=== PATIENT | male | born 1955 | race Caucasian/White ===

== ENCOUNTER → 2019-09-21 10:37 | Outpatient (CLI) | payer BC, SELFPAY ==
--- NOTE | ~2019-09-21 | MR_ITS ---
EXAMINATION: MR lumbar spine wo con DATE: 09/21/2019 11:37 INDICATION: Low back pain. Lumbar spinal stenosis. TECHNIQUE: Magnetic resonance imaging (MRI) of the lumbar spine was performed without intravenous con trast. Sequences included sagittal T2-weighted FSE, sagittal T2-weighted FS FSE, sagittal T1-weighted FSE, and axial T2-weighted FSE. COMPARISON: Lumbar spine MRI 07/04/2013 FINDINGS: There is 4 mm anterolisthesis of L4 on L5. There are Schmorl's nodes at most levels. There is mildly decreased disc height at L3-L4 and L4-L5 and moderately decreased disc height at L5-S1. The distal spinal cord signal intensity is normal. The conus medullaris is at T12-L1. The following disc levels are specifically discussed: L1-L2: The disc is bulging. There is moderate right and mild left facet joint osteoarthritis. There i s mild bilateral neural foraminal stenosis. There is mild central canal stenosis. L2-L3: The disc does not extend beyond the endplate margin. There is severe right and moderate left f acet joint osteoarthritis. There is no neural foraminal stenosis. There is no central canal stenosis. L3-L4: The disc is bulging. There is severe bilateral facet joint osteoarthritis. There is mild bilat eral neural foraminal stenosis. There is mild central canal stenosis. L4-L5: The disc is bulging and has an annular fissure. There is severe bilateral facet joint osteoart hritis. There is hypertrophy of the ligamentum flavum. There is mild right and moderate left neural f oraminal stenosis. There is severe central canal stenosis. L5-S1: The disc is mildly bulging. There is mild bilateral facet joint osteoarthritis. There is mild bilateral neural foraminal stenosis. There is mild central canal stenosis. IMPRESSION: 1. Persistent severe central canal stenosis at L4-L5. Stable moderate spondylosis at other levels. Reviewed, dictated and finalized at location A. IMPRESSION: 1. Persistent severe central canal stenosis at L4-L5. Stable moderate spondylos is at other levels.
== END ==
PROVIDERS: PCP Emergency Medicine; Visit Provider Emergency Medicine
DX: M48.061 Spinal stenosis, lumbar region without neurogenic claudication (principal); M51.26 Other intervertebral disc displacement, lumbar region; M47.816 Spondylosis without myelopathy or radiculopathy, lumbar region
CPT/HCPCS: 72148

== ENCOUNTER → 2020-06-05 10:36 | Outpatient (CLI) | payer BC, SELFPAY ==
--- NOTE | ~2020-06-05 | CT_ITS ---
EXAMINATION: CT abdomen pelvis w con DATE: 06/05/2020 11:06 INDICATION: Lower abdominal pain. TECHNIQUE: Computed tomography (CT) of the abdomen and pelvis was performed with 100 mL Omnipaque-350 intravenous contrast. Automated exposure control and iterative reconstruction technique were employe d. The dose-length product was 705.08 mGy-cm. COMPARISON: 04/12/2018 FINDINGS: Minimal discoid atelectasis in the bilateral lower lobes. Heart size is normal. No pericardial or ple ural effusion. Unchanged 1 cm cyst at the periphery of segment IVb of the liver. Gallbladder, spleen, pancreas, bilateral adrenal glands and right kidney are normal. 3.7 cm left renal cyst. The appendix is not visualized consistent with reported prior appendectomy. There are few scattered colonic diver ticula without adjacent inflammatory change to suggest diverticulitis. Decompressed bladder is normal . No free intraperitoneal gas or fluid. No pathologically enlarged abdominal or pelvic lymphadenopath y. Moderate thoracic and lumbar spondylosis. Chronic mild anterior wedging of a few lower thoracic ve rtebral bodies. IMPRESSION: 1. No acute intra-abdominal/pelvic process. Reviewed, dictated and finalized at location B.
[2020-06-05 10:54] LABS: Estimated Glomerular Filt Rate > 60
== END ==
PROVIDERS: PCP Emergency Medicine; Visit Provider Emergency Medicine
DX: R10.9 Unspecified abdominal pain (principal)
CPT/HCPCS: 74177; Q9967

== ENCOUNTER 2022-04-29 00:36 | Day surgery (SDC) | payer BC, SELFPAY ==
[2022-04-14 14:01] VITALS: BMI 27.3
--- NOTE | 2022-04-28 11:44 | P.PNAN_ITS ---
Anes - Initial Pre Proc Eval Procedure: Operation Date: 04/29/22 08:30 Proposed Procedures p Screening Colonoscopy - Dashawn Marcial MD Date/Time: 04/28/22 11:44 Surgeon: Dashawn Marcial MD Pre Op Diagnosis: neoplasm screening Patient Data Age: 66 Gender: M Height: 1.75 m Weight: 84 kg Allergies Allergy/AdvReac Type Severity Reaction Status Date / Time No Known Allergies Allergy Verified 04/29/22 07:25 Home Medications Medication Instructions Recorded Confirmed Type aspirin 81 mg tablet,delayed 81 mg PO DAILY 09/14/19 04/29/22 History release magnesium 250 mg tablet 250 mg PO DAILY 09/14/19 04/29/22 History lisinopril 20 mg tablet 20 mg PO DAILY #90 tabs 12/15/21 04/29/22 Rx temazepam 15 mg capsule 15 mg PO QHS PRN sleep #20 caps 03/31/22 04/29/22 Rx fenofibrate nanocrystallized 48 mg 48 mg PO DAILY 04/14/22 04/29/22 History tablet omeprazole 40 mg capsule,delayed 40 mg PO BID 04/14/22 04/29/22 History release simvastatin 20 mg tablet 20 mg PO DAILY 04/14/22 04/29/22 History nirmatrelvir 300 mg (150 mg See Rx Instructions PO .COMPLEX 04/17/22 04/29/22 Rx x2)-ritonavir 100 mg tablet,dose #30 ea pack(EUA) (Paxlovid) Patient hx anesthesia problems: none Family hx anesthesia problems: none Results Review: All pre-operative results and documents have been reviewed as part of the pre- operative evaluation. [facility] Past Medical History Medical History (Updated 04/28/22 @ 11:45 by Mark Anthony Bautista DO) BPH (benign prostatic hyperplasia) GERD (gastroesophageal reflux disease) HTN (hypertension) Hyperlipidemia Family History Family History Father Patient's father is in good health Patient's father is , Onset Age: 92 Mother Family history of heart disease in male family member before age 55 Patient's mother is , Onset Age: 86 Sibling Patient's brother is Family history of malignant neoplasm Social History Social History Smoking status: Never smoker Second hand tobacco smoke exposure: No Alcohol intake: current Drinks per week: 4 Alcohol use details: beer Substance use: never Substance use type: does not use Living arrangements: alone Gender identity (if verbalized by the patient): Male Spiritual care concerns: No Anes - Eval Final PreProcedure Day of Procedure 04/28/22 11:44 Patient weight: overweight Heart: regular rate and rhythm Lungs: clear to auscultation Airway: Mallampati scale class II Neurological: alert and oriented Last oral intake: >/= 8 hours ASA classification: II Emergent: no Anesthetic plan: proceed Anesthesia type and monitoring: general GIVS and standard monitoring Results Review: All pre-operative results and documents have been reviewed as part of the pre- operative evaluation. Informed Consent: The patient's anesthetic plan and its attendant risks and benefits were discussed with the patient/family/POA. Questions were solicited and answers provided to the satisfaction of the patient/family/POA.
--- NOTE | 2022-04-28 16:37 | PM.HPGS ---
History of Present Illness History of Present Illness Consent: Risks, benefits, and alternatives have been discussed and questions answered. Patient agrees to proceed with procedure. Chief complaint: neoplasm screening Narrative: Roddy Guardado is a 66 year old male Referred for colon cancer screening. His last colonoscopy was 5 years ago and was unremarkable He does have a history of polyps. Review of Systems Review of Systems: All systems reviewed & are unremarkable except as noted in HPI and below PMFSH Past Medical History Medical History BPH (benign prostatic hyperplasia) GERD (gastroesophageal reflux disease) HTN (hypertension) Hyperlipidemia Family History Family History Father Patient's father is in good health Patient's father is , Onset Age: 92 Mother Family history of heart disease in male family member before age 55 Patient's mother is , Onset Age: 86 Sibling Patient's brother is Family history of malignant neoplasm Social History Social History Smoking status: Never smoker Second hand tobacco smoke exposure: No Alcohol intake: current Drinks per week: 4 Alcohol use details: beer Substance use: never Substance use type: does not use Living arrangements: alone Gender identity (if verbalized by the patient): Male Spiritual care concerns: No Meds Home Medications and Allergies Home Medications Medication Instructions Recorded Confirmed Type aspirin 81 mg tablet,delayed 81 mg PO DAILY 09/14/19 04/29/22 History release magnesium 250 mg tablet 250 mg PO DAILY 09/14/19 04/29/22 History lisinopril 20 mg tablet 20 mg PO DAILY #90 tabs 12/15/21 04/29/22 Rx temazepam 15 mg capsule 15 mg PO QHS PRN sleep #20 caps 03/31/22 04/29/22 Rx fenofibrate nanocrystallized 48 mg 48 mg PO DAILY 04/14/22 04/29/22 History tablet omeprazole 40 mg capsule,delayed 40 mg PO BID 04/14/22 04/29/22 History release simvastatin 20 mg tablet 20 mg PO DAILY 04/14/22 04/29/22 History nirmatrelvir 300 mg (150 mg See Rx Instructions PO .COMPLEX 04/17/22 04/29/22 Rx x2)-ritonavir 100 mg tablet,dose #30 ea pack(EUA) (Paxlovid) Allergies Allergy/AdvReac Type Severity Reaction Status Date / Time No Known Allergies Allergy Verified 04/29/22 07:25 Exam Resp: Auscultation: clear to auscultation bilaterally Cardio: Rate: regular rate Rhythm: regular rhythm GI: GI Palp: Yes Soft to palpation and No Tenderness to palpation present (GI) Assessment and Plan Assessment and plan (1) Colon cancer screening: Code(s): Z12.11 - Encounter for screening for malignant neoplasm of colon Status: Acute Assessment and Plan: Colonoscopy with possible biopsy or polypectomy or cautery or injection of substances.
[2022-04-29 07:27] VITALS: BP 129/86; PULSE 64; RESP 18; TEMP 36.4; O2SAT 98; BMI 27.9
[2022-04-29] MEDS: LACTATED RINGERS 1,000 ML 150 ML IV CONT (07:37)
[2022-04-29 08:44] VITALS: BP 110/69; PULSE 62; RESP 24; O2SAT 97
[2022-04-29 08:54] VITALS: BP 115/80; PULSE 63; RESP 15; O2SAT 98
[2022-04-29 09:04] VITALS: BP 122/86; PULSE 64; RESP 17; O2SAT 98
== END 2022-04-29 09:12 | disposition home or self-care (01) ==
PROVIDERS: PCP Emergency Medicine; Visit Provider Internal Medicine Gastroenterology
PROC: 0DJD8ZZ Inspection of Lower Intestinal Tract, Via Natural or Artificial Opening Endoscopic (ICD-10-PCS; CPT 45378; principal; 2022-04-29 08:30)
DX: Z12.11 Encounter for screening for malignant neoplasm of colon (principal); K57.30 Diverticulosis of large intestine without perforation or abscess without bleeding; Z86.010 Personal history of colon polyps; Z79.82 Long term (current) use of aspirin; I10 Essential (primary) hypertension; E78.5 Hyperlipidemia, unspecified; K21.9 Gastro-esophageal reflux disease without esophagitis; N40.0 Benign prostatic hyperplasia without lower urinary tract symptoms
CPT/HCPCS: 45378; J2704; J7120

== ENCOUNTER → 2022-08-04 08:15 | Outpatient (CLI) | payer MEDICARE, SELFPAY ==
--- NOTE | ~2022-08-04 | CT_ITS ---
CT of the Abdomen and Pelvis: Indication: Abdominal pain Technique: 2.5 mm axial scans were obtained through the abdomen and pelvis following intravenous adm inistration of 100 cc of Omnipaque 350. Dose reduction technique was used on this scan by utilizing a utomated exposure control and iterative reconstruction technique. The dose-length product (DLP) was 7 99.16 mGy-cm. COMPARISON: 06/05/2020 Findings: Scans through the lung bases are unremarkable. The liver, spleen, pancreas, gallbladder, adrenals and kidneys are within normal limits. No evidence of aortic aneurysm. No lymphadenopathy. No bowel obstruction or bowel wall thickening. There is no evidence to suggest acute appendicitis. Images through the pelvis were performed. Urinary bladder unremarkable. Prostate gland and seminal ve sicles are unremarkable. No ascites. Mild compression deformities of T8 and T9 are similar to prior e xam. Impression: No acute abnormality. Stable mild compression deformities of T8 and T9. Reviewed, dictated and finalized at location . Impression: No acute abnormality. Stable mild compression deformities of T8 and T9.
[2022-08-04 08:35] LABS: Estimated Glomerular Filt Rate > 60
== END ==
PROVIDERS: PCP Nurse Practitioner Family; Visit Provider Nurse Practitioner Family
DX: R10.9 Unspecified abdominal pain (principal); M43.8X4 Other specified deforming dorsopathies, thoracic region
CPT/HCPCS: 74177; Q9967

== ENCOUNTER 2023-03-24 19:21 | Emergency (ER) | payer MEDICARE, SELFPAY ==
[2023-03-24 19:31] VITALS: BP 142/77; PULSE 93; RESP 16; TEMP 38; O2SAT 100
--- NOTE | 2023-03-24 19:32 | ED.URI ---
HPI - URI/Sore Throat General Chief Complaint: Upper Respiratory Infection Stated Complaint: Fever;Cough;Chills Time Seen by Provider: 03/24/23 19:32 Source: patient, RN notes reviewed and old records reviewed Mode of arrival: ambulatory Limitations: no limitations History of Present Illness HPI Narrative: 67-year-old male presents to the [facility] with complaints of fever, cough, chills since Tuesday [facility] day(s) (2) Related Data Home Medications Medication Instructions Recorded Confirmed aspirin 81 mg tablet,delayed 81 mg PO DAILY 09/14/19 03/24/23 release magnesium 250 mg tablet 250 mg PO DAILY 09/14/19 03/24/23 Allergies Allergy/AdvReac Type Severity Reaction Status Date / Time No Known Allergies Allergy Verified 03/24/23 19:27 Review of Systems Review of Systems: All systems reviewed & are unremarkable except as noted in HPI and below Constitutional: Constitutional: Reports as per HPI, Reports body ache(s), Reports chills, Reports fatigue and Reports fever(s) Eyes: Eyes: Reports no additional eye complaints ENT: Reports system reviewed and no additional complaints, except as documented Cardiovascular: Cardiovascular: Reports no additional cardiovascular complaints, Denies chest pain and Denies dyspnea Respiratory: Respiratory: Reports as per HPI, Denies chest congestion, Reports cough and Denies dyspnea Gastrointestinal: Gastrointestinal: Reports no additional gastrointestinal complaints, Denies abdominal pain, Denies nausea and Denies vomiting Musculoskeletal: Musculoskeletal: Reports no additional musculoskeletal complaints Integumentary/Breasts: Skin/Breast: Reports system reviewed and no additional complaints, except as docu Neurologic: Reports system reviewed and no additional complaints, except as documented Psychiatric: Psychiatric: Reports no additional psychiatric complaints Allergic/Immunologic: Allergic/Immunologic: Reports no additional allergic/immunologic complaints [facility] Past Medical History Medical History BPH (benign prostatic hyperplasia) Dark stools GERD (gastroesophageal reflux disease) HTN (hypertension) Hyperlipidemia Family History Family History Father Patient's father is in good health Patient's father is , Onset Age: 92 Mother Family history of heart disease in male family member before age 55 Patient's mother is , Onset Age: 86 Sibling Patient's brother is Family history of malignant neoplasm Social History Social History Smoking status: Never smoker Second hand tobacco smoke exposure: No Alcohol intake: current Drinks per week: 4 Alcohol use details: beer Substance use: never Substance use type: does not use Living arrangements: alone Gender identity (if verbalized by the patient): Male Spiritual care concerns: No Comments At the time of my signature, I reviewed and agree with the nursing past medical, surgical, social, and family history. There is no relevant family history pertinent to the patient complaint. Exam Const: General: cooperative, healthy appearing, comfortable, no acute distress, well developed, alert and well nourished Nutritional Appearance: well nourished Orientation/consciousness: patient oriented x3 Limitations: no limitations HENMT: Head: normal to inspection Ears: hearing grossly normal bilaterally and external ears normal Face/Nose/Sinus: Normal external nose present, Normal nares present, Normal nasal mucous membranes and turbinates present, normal facial exam and face symmetric Face and sinus: normal facial exam and face symmetric Mouth: Yes Normal oral and palatal mucosa present, Yes lip normal and Yes moist mucous membranes
== END 2023-03-24 19:48 | disposition home or self-care (01) ==
PROVIDERS: Emergency Provider Nurse Practitioner; PCP Emergency Medicine
DX: J10.1 Influenza due to other identified influenza virus with other respiratory manifestations (principal); I10 Essential (primary) hypertension; E78.5 Hyperlipidemia, unspecified; Z79.82 Long term (current) use of aspirin; Z20.822 Contact with and (suspected) exposure to COVID-19
CPT/HCPCS: 87426; 87804; 99213; G0463

== ENCOUNTER 2023-03-27 10:05 | Emergency (ER) | payer MEDICARE, SELFPAY ==
--- NOTE | ~2023-03-27 | XR_ITS ---
EXAMINATION: XR chest 1V portable 03/27/2023 10:35 INDICATION: Shortness of breath. Flu PROCEDURE: AP portable chest COMPARISON: No prior studies for comparison. FINDINGS: The lungs are clear. The cardiomediastinal silhouette is within normal limits. There are no pleural effusions. There is no pneumothorax suspected. IMPRESSION: 1: NO ACUTE CARDIOPULMONARY DISEASE. Reviewed, dictated and finalized at location A. [employer]
[2023-03-27 10:11] VITALS: BP 150/78; PULSE 64; RESP 16; TEMP 36.5; O2SAT 100
--- NOTE | 2023-03-27 10:23 | ECG_ITS ---
Measurements Intervals [place] Rate: 63 P: 61 IA: 153 QRS: 32 QRSD: 97 T: 61 QT: 363 QTc: 372 Interpretive Statements SINUS RHYTHM EARLY PRECORDIAL R/S TRANSITION BORDERLINE ECG NO PREVIOUS ECG AVAILABLE FOR COMPARISON Electronically Signed On 03-27-2023 11:31:28 [employer] by Hima Muller D.O.
[2023-03-27 10:39] LABS: Basophils Percent Auto 0.4 % (0.2-1.2); Eosinophils Absolute Auto 0.1 K/mm3 (0-0.3); Eosinophils Percent Auto 1.1 % (0-4.4); Hematocrit 38.8 % (42.0-52.0); Hemoglobin 12.9 g/dL (14.0-18.0); Immature Granulocyte Absolute 0.01 K/mm3 (0.00-0.031); Immature Granulocyte Percent A 0.2 % (0-0.5); Lymphocytes Absolute Auto 1.32 K/mm3 (0.9-3.2); Lymphocytes Percent Auto 28.6 % (18.3-44.2); Mean Corpuscular HGB Conc 33.2 g/dl (32-36); Mean Corpuscular Hemoglobin 31.5 pg (26-34); Mean Corpuscular Volume 94.9 fl (80-100); Monocytes Absolute Auto 0.5 K/mm3 (0.1-0.6); Monocytes Percent Auto 10.6 % (2.6-8.5); Neutrophils Absolute Auto 2.7 K/mm3 (1.3-6.7); Neutrophils Percent Auto 59.1 % (45.5-73.1); Platelet Count Result 199 k/mm3 (150-375); Red Blood Count 4.09 M/mm3 (4.6-6.20); White Blood Count 4.6 K/mm3 (4.5-10.0)
[2023-03-27 10:48] LABS: Alanine Aminotransferase 28 U/L (6-50); Albumin Level 3.8 g/dL (3.5-5.1); Alkaline Phosphatase 53 U/L (38-126); Anion Gap 5 mmol/L (8-16); Aspartate Amino Transferase 33 U/L (17-59); Bilirubin,Total 0.4 mg/dL (0.2-1.3); Blood Urea Nitrogen 12 mg/dL (9-20); Calcium 9.1 mg/dL (8.4-10.2); Carbon Dioxide 30 mmol/L (22-30); Chloride 107 mmol/L (98-107); Estimated CRCL calculation 72 ml/min; Estimated Glomerular Filt Rate > 60; Glucose 112 mg/dL (65-110); Potassium 3.6 mmol/L (3.4-5.0); Sodium 142 mmol/L (137-145)
--- NOTE | 2023-03-27 11:06 | ED.GENADULT ---
HPI - General Adult General Chief complaint: Shortness of Breath/Dyspnea Stated complaint: GARGLING IN CHEST Time Seen by Provider: 03/27/23 10:30 History of Present Illness HPI narrative: 67-year-old male present to the emergency department for evaluation of some gurgling respirations. Patient states on Tuesday he began having flu-like symptoms and patient did test positive for influenza a on . Patient reports his primary care physician had ordered him outpatient imaging but he had not had this done. Patient states when he woke up this morning he had onset of some gurgling in his chest that he states has since resolved. Room upon arrival to the emergency department patient is alert oriented and saturating 100% with a pulse in the 60s. Patient is in no distress. Related Data Home Medications Medication Instructions Recorded Confirmed aspirin 81 mg tablet,delayed 81 mg PO DAILY 09/14/19 03/24/23 release magnesium 250 mg tablet 250 mg PO DAILY 09/14/19 03/24/23 Allergies Allergy/AdvReac Type Severity Reaction Status Date / Time No Known Allergies Allergy Verified 03/24/23 19:27 Review of Systems Review of Systems: All systems reviewed & are unremarkable except as noted in HPI and below PMFSH Past Medical History Medical History BPH (benign prostatic hyperplasia) Dark stools GERD (gastroesophageal reflux disease) HTN (hypertension) Hyperlipidemia Family History Family History Father Patient's father is in good health Patient's father is , Onset Age: 92 Mother Family history of heart disease in male family member before age 55 Patient's mother is , Onset Age: 86 Sibling Patient's brother is Family history of malignant neoplasm Social History Social History Smoking status: Never smoker Second hand tobacco smoke exposure: No Alcohol intake: current Drinks per week: 4 Alcohol use details: beer Substance use: never Substance use type: does not use Living arrangements: alone Gender identity (if verbalized by the patient): Male Spiritual care concerns: No Exam Narrative: APPEARANCE: Well appearing, no pain, no distress, well-nourished. HEAD: normocephalic, atraumatic. EYES: PERRLA/EOMI, conjunctivae clear. NOSE: Normal no drainage EARS:TMS clear with good light reflex. THROAT: Pharynx clear, no exudate. NECK: Supple. No adenopathy, no masses. RESPIRATORY: Lungs are clear to auscultation with no rhonchi rales or wheezing CARDIOVASCULAR: Regular rate and rhythm without murmurs rubs or gallops. ABDOMINAL: Soft, nontender, nondistended, normal bowel sounds MUSCULOSKELETAL: Moves all extremities. Strength/ROM intact, No edema, No calf tenderness. NEURO: Alert. Cranial nerves II through XII intact. Good gait. Good coordination SKIN: Warm, dry. Normal Color Course Course Emergency Course: 67-year-old male presenting ED for evaluation for some gurgling in his chest, patient states symptoms have resolved. Patient is afebrile with no leukocytosis and a stable hemoglobin, CMP shows no acute abnormalities and patient's x-ray shows no acute cardiopulmonary abnormality. Patient was positive for influenza a . Vital Signs Vital signs: Vital Signs Temperature 97.7 F 03/27/23 10:11 Pulse Rate 64 03/27/23 10:11 Respiratory Rate 16 03/27/23 10:11 Blood Pressure 150/78 H 03/27/23 10:11 Pulse Oximetry 100 03/27/23 10:11 Temperature 97.7 F 03/27/23 10:11 Pulse Rate 64 03/27/23 11:25 Respiratory Rate 16 03/27/23 11:25 Blood Pressure 140/80 03/27/23 11:25 Pulse Oximetry 100 03/27/23 11:25 Oxygen Delivery Room Air 03/27/23 11:24 Medical Decision Making Vital Signs Vital Signs: Vital Signs Temperature 97.7
[2023-03-27 11:18] LABS: Influenza A QL RT-PCR Positive (Negative); Influenza B QL RT-PCR Negative (Negative); RSV RNA, RT-PCR Negative (Negative); SARS-CoV-2 RNA PCR Negative (Negative)
[2023-03-27 11:24] VITALS: O2SAT 100
[2023-03-27 11:25] VITALS: BP 140/80; PULSE 64; RESP 16; O2SAT 100
== END 2023-03-27 11:26 | disposition home or self-care (01) ==
PROVIDERS: Emergency Provider Emergency Medicine; PCP Emergency Medicine
DX: J10.1 Influenza due to other identified influenza virus with other respiratory manifestations (principal); R05.9 Cough, unspecified; Z20.822 Contact with and (suspected) exposure to COVID-19; I10 Essential (primary) hypertension; E78.5 Hyperlipidemia, unspecified; N40.0 Benign prostatic hyperplasia without lower urinary tract symptoms; K21.9 Gastro-esophageal reflux disease without esophagitis
CPT/HCPCS: 36415; 71045; 80053; 85025; 87637; 93005; 99284

== ENCOUNTER 2023-10-19 18:53 | Emergency (ER) | payer MEDICARE, SELFPAY ==
--- NOTE | ~2023-10-19 | CT_ITS ---
EXAMINATION: CTA chest abdomen pelvis DATE: 10/20/2023 01:04 INDICATION: Mid back pain. Abdominal pain. TECHNIQUE: Computed tomographic angiography (CTA) of the chest, abdomen, and pelvis was performed wit h 100 mL Omnipaque-350 intravenous contrast. Automated exposure control and iterative reconstruction technique were employed. The dose-length product was 776.89 mGy-cm. Maximum intensity projection 3D-r econstructions of the aorta and other arteries were constructed by the technologist on a separate wor kstation. COMPARISON: CT abdomen and pelvis 08/04/22 FINDINGS: CHEST CTA: The lungs demonstrate mild atelectasis. Calcified left lung nodules and calcified left hilar lymph no juan are consistent with old granulomatous disease. No pleural effusion. There is mild right hilar lym phadenopathy, likely reactive. The heart size is normal. There are coronary artery calcifications. No pericardial effusion. There is no pulmonary embolus. There is mild aortic atherosclerosis. There is mild chronic anterior wedging of multiple vertebral bodies. There is moderate thoracic spondylosis. ABDOMEN AND PELVIS CTA: The liver and gallbladder are normal. Calcifications in the spleen are consistent with old granulomat ous disease. The pancreas and adrenal glands and right kidney are normal. There is a 4.4 cm cyst in l eft kidney. There is diverticulosis of the colon without evidence of diverticulitis. The appendix is not visualized. There are no dilated loops of bowel. There is no significant stenosis of celiac axis, superior mesenteric artery, the renal arteries, or inferior mesenteric artery. Aortic atherosclerosi s is noted. There are no pathologically enlarged lymph nodes. There is no free intraperitoneal fluid. There is moderate lumbar spondylosis. IMPRESSION: 1. Mild aortic atherosclerosis. No aneurysm or dissection. Reviewed, dictated and finalized at location A.
[2023-10-19 19:16] VITALS: BP 130/79; PULSE 67; RESP 14; TEMP 37.1; O2SAT 98
--- NOTE | 2023-10-19 23:24 | ECG_ITS ---
Test Date: 2023-10-19 23:46:48 Measurements Intervals [place] Rate: 49 P: 60 NE: 167 QRS: 32 QRSD: 97 T: 52 QT: 419 QTc: 381 Interpretive Statements SINUS BRADYCARDIA No previous ECG available for comparison Electronically Signed On 10-20-2023 14:42:44 CDT by Tony Altamirano M.D.
--- NOTE | 2023-10-19 23:25 | ED.ABDPAIN ---
HPI - Abdominal Pain General Chief Complaint: Abdominal Pain <SOLEDAD Brandt Last Filed: 10/20/23 03:12> Stated Complaint: Left sided Abdominal pain, LUQ, LLQ <SOLEDAD Brandt Last Filed: 10/20/23 03:12> Time Seen by Provider: 10/19/23 23:11 <SOLEDAD Brandt Last Filed: 10/20/23 03:12> History of Present Illness HPI narrative: 68-year-old male with history of hypertension, hyperlipidemia and GERD presents to the emergency department for intermittent abdominal pain for several weeks. Patient states that the onset of symptoms is pain would occur at night when be in the lower quadrants of his abdomen. States now the pain is intermittent his lower abdomen and in his left upper quadrant. He is also reporting some exertional shortness of breath. States he works as a [employer] noticed today a it seemed more out of breath than normal. States he has also been experiencing some intermittent mid back pain he between his scapula. He cannot identify any aggravating or alleviating factors for his pain. He denies fever, nausea or vomiting, dysuria or hematuria, diarrhea. Reports a history of hernia repair and appendectomy. Last bowel movement was today and normal. He is also reporting a residual cough from when he had influenza A in March of 2023. <SOLEDAD rBandt Last Filed: 10/20/23 03:12> Related Data Home Medications: Home Medications Medication Instructions Recorded Confirmed aspirin 81 mg tablet,delayed 81 mg PO DAILY 09/14/19 04/01/23 release magnesium 250 mg tablet 250 mg PO DAILY 09/14/19 04/01/23 <SOLEDAD Brandt Last Filed: 10/20/23 03:12> Allergies/Adverse Reactions: Allergies Allergy/AdvReac Type Severity Reaction Status Date / Time No Known Allergies Allergy Verified 10/19/23 19:21 <SOLEDAD Brandt Last Filed: 10/20/23 03:12> Review of Systems Review of Systems: All systems reviewed & are unremarkable except as noted in HPI and below <SOLEDAD Brandt Last Filed: 10/20/23 03:12> PMFSH Past Medical History Medical History: Medical History BPH (benign prostatic hyperplasia) Dark stools GERD (gastroesophageal reflux disease) HTN (hypertension) Hyperlipidemia <Millicent Avendaño PA-C - Last Filed: 10/20/23 03:12> Family History Family History: Family History Father Patient's father is in good health Patient's father is , Onset Age: 92 Mother Family history of heart disease in male family member before age 55 Patient's mother is , Onset Age: 86 Sibling Patient's brother is Family history of malignant neoplasm <Millicent Avendaño PA-C - Last Filed: 10/20/23 03:12> Social History Social History: Social History Smoking status: Never smoker Second hand tobacco smoke exposure: No Alcohol intake: current Drinks per week: 4 Alcohol use details: beer Substance use: never Substance use type: does not use Current Housing: Decline to Answer Concerned About Future Housing: Decline to Answer Difficulty Paying Gas/Electric Bills: Decline to Answer Difficulty Paying for Meds: Decline to Answer Currently Unemployed: Decline to Answer Education: Decline to Answer Difficulty w/ Childcare or Family Care: Decline to Answer Living arrangements: alone Gender identity (if verbalized by the patient): Male Spiritual care concerns: No <Millicent Avendaño PA-C - Last Filed: 10/20/23 03:12> Exam Narrative: GENERAL: Well-appearing, well-nourished, and in no acute distress. HEAD: Normocephalic, atraumatic. EYES: PERRLA and EOMI. ENT: Nares clear, no rhinorrhea or epistaxis. Mucous membranes moist. NECK: Supple. BACK: No midline thoracolumba
[2023-10-20 00:10] LABS: Add Urine Microscopic? NO; Appearance Urine Clear (Clear); Bilirubin Urine Negative (Negative); Blood Urine Negative (Negative); Color Urine Yellow (Yellow); Glucose Urine UA Negative (Negative); Ketones Urine Negative (Negative); Leukocyte Esterase Ur Negative LEU/UL (Negative); Nitrate Urine Negative (Negative); Protein Urine Negative (Negative); Specific Grav Ur 1.016 (1.001-1.035); Urobilinogen Urine 0.2 mg/dL (<2.0)
[2023-10-20 00:19] LABS: Basophils Percent Auto 0.5 % (0.2-1.2); Eosinophils Absolute Auto 0.2 K/mm3 (0-0.3); Eosinophils Percent Auto 2.7 % (0-4.4); Hematocrit 39.5 % (42.0-52.0); Hemoglobin 13.5 g/dL (14.0-18.0); Immature Granulocyte Absolute 0.01 K/mm3 (0.00-0.031); Immature Granulocyte Percent A 0.2 % (0-0.5); Lymphocytes Percent Auto 40.3 % (18.3-44.2); Mean Corpuscular HGB Conc 34.2 g/dl (32-36); Mean Corpuscular Hemoglobin 32.1 pg (26-34); Monocytes Absolute Auto 0.7 K/mm3 (0.1-0.6); Monocytes Percent Auto 10.6 % (2.6-8.5); Neutrophils Absolute Auto 2.8 K/mm3 (1.3-6.7); Neutrophils Percent Auto 45.7 % (45.5-73.1); Platelet Count Result 243 k/mm3 (150-375); Red Cell Distribution Width 12.8 % (11.5-14.5); White Blood Count 6.2 K/mm3 (4.5-10.0)
[2023-10-20 00:20] LABS: Alanine Aminotransferase 29 U/L (6-50); Albumin Level 4.5 g/dL (3.5-5.1); Alkaline Phosphatase 64 U/L (38-126); Anion Gap 9 mmol/L (4-12); Aspartate Amino Transferase 31 U/L (17-59); Bilirubin,Total 0.7 mg/dL (0.2-1.3); Blood Urea Nitrogen 16 mg/dL (9-20); Calcium 9.6 mg/dL (8.4-10.2); Carbon Dioxide 29 mmol/L (22-30); Chloride 100 mmol/L (98-107); Estimated CRCL calculation 64 ml/min; Estimated Glomerular Filt Rate > 60; Glucose 97 mg/dL (65-110); Lipase 146 U/L (23-300); Potassium 4.2 mmol/L (3.4-5.0); Sodium 138 mmol/L (137-145)
[2023-10-20 00:21] LABS: Prothrombin Time 13.5 Seconds (11.1-14.7)
[2023-10-20 00:22] LABS: Partial Thromboplastin Time 31.6 Seconds (22.3-36.8)
[2023-10-20 00:30] LABS: NT Pro B Type Natriuretic Pept 26 pg/mL (19.9-100)
[2023-10-20 00:32] LABS: Troponin I < 0.012 ng/mL (0.000-0.034)
[2023-10-20 00:46] LABS: Influenza A QL RT-PCR Negative (Negative); Influenza B QL RT-PCR Negative (Negative); RSV RNA, RT-PCR Negative (Negative); SARS-CoV-2 RNA PCR Negative (Negative)
[2023-10-20 03:47] VITALS: BP 126/83; PULSE 74; RESP 18; O2SAT 99
== END 2023-10-20 04:35 | disposition home or self-care (01) ==
PROVIDERS: Physician Assistant; Emergency Provider Emergency Medicine; PCP Emergency Medicine
DX: R10.84 Generalized abdominal pain (principal); M54.6 Pain in thoracic spine; R06.02 Shortness of breath; Z20.822 Contact with and (suspected) exposure to COVID-19; I10 Essential (primary) hypertension; E78.5 Hyperlipidemia, unspecified; N40.0 Benign prostatic hyperplasia without lower urinary tract symptoms; K21.9 Gastro-esophageal reflux disease without esophagitis; Z79.82 Long term (current) use of aspirin; Z79.899 Other long term (current) drug therapy; R00.1 Bradycardia, unspecified; I70.0 Atherosclerosis of aorta
CPT/HCPCS: 36415; 71275; 74174; 80053; 81003; 83690; 83880; 84484; 85025; 85610; 85730; 87637; 93005; 99284; Q9967

== ENCOUNTER 2024-04-04 08:56 | Outpatient (CLI) | payer MEDICARE, SELFPAY ==
--- OUTSIDE RECORDS SUMMARY | 2024-04-04 09:18 | XMS_ITS | Encounter Summary ---
Author Organization 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
--- OUTSIDE RECORDS SUMMARY | 2024-04-04 09:18 | XMS_ITS | Clinical Summary ---
Author Organization [facility] [address] Address [address] [place] [address] Care Team Providers Care Ham Facer Name Role Phone Gurjit Jones MD Primary Care Provide r Allergies No known active allergies Medications lisinopriL (PRINIVIL,ZESTRIL) 20 mg tablet Take 1 tablet (20 mg total) by mouth daily 08/06/19 20 Active fenofibrate nanocrystallized (TRICOR) 48 mg tablet Take 1 tablet (48 mg total) by mouth daily 10/16/19 20 Active omeprazole (PriLOSEC) 40 mg capsule Take 1 capsule (40 mg total) by mouth daily Active simvastatin (ZOCOR) 20 mg tablet Take 1 tablet (20 mg total) by mouth nightly 08/15/19 20 Active omega-3 fatty acids-fish oil 360-1,200 mg capsule Take 1 capsule by mouth Active ubidecarenone (coenzyme Q10) 60 mg capsule 60 mg Active pomegranate fruit extract 250 mg capsule Take by mouth Active pebalwol-lxl-BK-lyco pen-lutein (Centrum Silver Ultra Men's) 300-600-300 mcg tablet Take by mouth Active methylPREDNISolone (Medrol, Desean,) 4 mg Dosepack follow package directions 21 tablet 10/29/19 20 Active Additional Information Patient not taking.Reported on 08/22/2020 gabapentin (NEURONTIN) 300 mg capsule Take 1 capsule (300 mg total) by mouth nightly 90 capsule 1 10/29/19 20 Active tamsulosin (FLOMAX) 0.4 mg extended release capsule Take 1 capsule (0.4 mg total) by mouth daily 30 capsule 11 10/05/19 24 025 Active Active Problems Problem Noted Date Diagnosed Date Other chest pain 08/22/2020 Essential hypertension 08/22/2020 Mixed hyperlipidemia 08/22/2020 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 10/29/19 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 10/16/2019 Spondylolisthesis at L4-L5 level 10/16/2019 Family History Medical History Relation Name Comments Cancer Brother Breast cancer Father Cancer Mother Hypertension Mother Osteoporosis Mother Relation Name Status Comments Brother Renal Cancer Father Mother Social History Tobacco Use Types Packs/Day Years Used Date Smoking Tobacco: Never Personal Safety Answer Date Recorded Getting School Help Needed Not on file 04/24 Sex and Gender Information Value Date Recorded Sex Assigned at Not on file 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 Gender Identity Not on file Sexual Orientation Not on file Obstetrics History Last Filed Vital Signs Vital Sign Reading Time Taken Comments Blood Pressure 136/81 08/22/2020 8:12 AM CDT Pulse 52 08/22/2020 8:12 AM CDT Temperature 36.3 ??C (97.3 ??F) 10/29/2019 2:22 PM CD T Respiratory Rate - - Oxygen Saturation 98% 08/22/2020 8:12 AM CDT Inhaled Oxygen Concentration - - Weight 86.4 kg (190 lb 8 oz) 08/22/2020 8:12 AM CDT Height 175.3 cm (5' 9 ) 08/22/2020 8:12 AM CDT Body Mass Index 28.13 08/22/2020 8:12 AM CDT Plan of Treatment Health Maintenance Due Date Last Done Comments Colon Cancer Screening-Colonoscopy 1955 Depression Screening 1957 Fall Risk Assessment 1957 Hepatitis C Screening 1957 Prostate Cancer Screening-PSA 1957 Hepatitis B Screening 05/12/1975 Zoster Vaccine (1 of 2) 05/12/2007 Pneumococcal vaccine 65+ (1 of 1 - PCV) 2022 Well Visit 65+ 2022 Influenza Vaccine (#1) 2023 DTaP/Tdap/Td Vaccine (2 - Td or Tdap) 02/02/202607/2015 [place] P[place] Care Teams Ham Facer Relationship Specialty Start Date End Date Gurjit Jones MD [address] [place] [address] PCP - General 08/05/14
--- OUTSIDE RECORDS SUMMARY | 2024-04-04 09:18 | XMS_ITS | Encounter Summary ---
Author Organization [facility] Address [address] [place] [address] Phone Care Team Providers Care Assistant Professor Nurse Education Name Role Phone Gurjit Jones MD Primary Care Provide r Encounter Details Date Type Department Care Team (Latest Contact Info) Description 11/05/2011 Orders Only [facility] Scanning, Provider Social History Tobacco Use Types Packs/Day Years Used Date Smoking Tobacco: Never Assessed Sex and Gender Information Value Date Recorded Sex Assigned at Not on file 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
--- OUTSIDE RECORDS SUMMARY | 2024-04-04 09:19 | XMS_ITS | Clinical Summary ---
Author Organization [facility] [address] [facility] Address [address] [place] [address] Care Team Providers Care Director New Product Name Role Phone Gurjit Jones MD Primary Care Provider + [phone] Allergies No known active allergies Medications omeprazole (PriLOSEC) 40 mg Capsule, Delayed Release(E.C.) Take 40 mg by mouth daily. Active lisinopriL (PRINIVIL) 20 mg tablet Take 20 mg by mouth daily. Active fenofibrate nanocrystallized (TRICOR) 48 mg tablet Take 48 mg by mouth daily. Active simvastatin (ZOCOR) 20 mg tablet Take 20 mg by mouth daily with supper. Active LOW-DOSE ASPIRIN ORAL Take 81 mg by mouth. Active pomegranate xt/pomegranat seed (POMEGRANATE ORAL) Take by mouth. Active COQ10, UBIQUINOL, ORAL Take by mouth. Active Fish Oil-[place]-3 Fatty Acids 360-1,200 mg Capsule Take 1 Capsule by mouth. Active multivit-min/folic/v it K/lycop (MEN'S MULTIVITAMIN ORAL) Take by mouth. 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 10/16/2019 Family History Relation Name Status Comments Father Mother Social History Tobacco Use Types Packs/Day Years Used Date Smoking Tobacco: Never Alcohol Use Standard Drinks/Week Comments Yes 0 (1 standard drink = 0.6 oz pur e alcohol) Sex and Gender Information Value Date Recorded Sex Assigned at Not on file Legal Sex Male 4:14 PM CDT Gender Identity Not on file Sexual Orientation Not on file Last Filed Vital Signs Vital Sign Reading Time Taken Comments Blood Pressure - - Pulse - - Temperature 36.4 ??C (97.5 ??F) 10/16/2019 1:17 PM CD T Respiratory Rate - - Oxygen Saturation - - Inhaled Oxygen Concentration - - Weight - - Height - - Body Mass Index - - Plan of Treatment Health Maintenance Due Date Last Done Comments DTAP/TDAP/TD VACCINES (1 - Tdap) 1976 COLORECTAL SCREENING 2002 Colorectal Cancer Screening 2002 FIT-DNA Q 3 years 2002 FIT/FOBT Q 1 year 2002 Flex Sig/CT Colonography Q 5 years 2002 PNEUMOCOCCAL VACCINE 65+ YEARS (1 of 1 - PCV) 05/12/19 08 ZOSTER VACCINE (1 of 2) 05/12/2007 INFLUENZA VACCINE (#1) 2023 RSV VACCINE (60+ or ) (1 - 1-dose 75+ series) 2032 Insurance [facility] Care Teams Director New Product Relationship Specialty Start Date End Date Gurjit Jones MD [address] [place] [phone] PCP - General Internal Medicine 09/24/19
--- OUTSIDE RECORDS SUMMARY | 2024-04-04 09:19 | XMS_ITS | Encounter Summary ---
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
--- OUTSIDE RECORDS SUMMARY | 2024-04-04 09:19 | XMS_ITS | Encounter Summary ---
Author Organization [facility] Address [address] [place] [address] Phone Care Team Providers Care Commercial Glazier Name Role Phone Gurjit Jones MD Primary Care Provide r Encounter Details Date Type Department Care Team (Latest Contact Info) Description 06/23/2020 Orders Only [facility] Scanning, Provider Social History Tobacco Use Types Packs/Day Years Used Date Smoking Tobacco: Never Sex and Gender Information Value Date Recorded Sex Assigned at Not on file Legal Sex Male 7:20 PM MANAGER AUDIT Gender Identity Not on file Sexual Orientation Not on file documented as of this encounter Plan of Treatment Not on file documented as of this encounter Procedures Procedure Name Priority Date/Time Associated Diagnosis Comments SCAN - LABS 06/23/2020 documented in this encounter Results * SCAN - LABS (06/23/2020) us Provider Scanning Final Result documented in this encounter Visit Diagnoses Not on filedocumented in this encounter Care Teams Commercial Glazier Relationship Specialty Start Date End Date Gurjit Jones MD [address] [place] [address] PCP - General 08/05/14 documented as of this encounter
--- OUTSIDE RECORDS SUMMARY | 2024-04-04 09:19 | XMS_ITS | Referral Summary ---
Author Organization [facility] [address] Address [address] [place] [address] Care Team Providers Care Medical Scientific Liaison Name Role Phone Gurjit Jones MD Primary [...] 250 mg capsule Take by mouth Active bxdllhcx-jiu-GE-lyco pen-lutein (Centrum Silver Ultra Men's) 300-600-300 mcg [...] nosis 10/16/2019 Spondylolisthesis at L4-L5 level 10/16/2019 Social History Tobacco Use Types Packs/Day Years Used Date Smoking Tobacco: Never Personal Safety Answer Date Recorded Getting School Help Needed Not on file 04/24 Sex and Gender Information Value Date Recorded Sex Assigned at Not on file Legal Sex Male 7:20 PM IMPERSONATOR CHARACTER Gender Identity Not on file Sexual Orientation [...] 08/22/2020 8:12 AM CDT Plan of Treatment Not on file Insurance [facility] [employer] [place] [employer] CHOICE MEDICARE PPO Care Teams Medical Scientific Liaison Relationship Specialty Start Date End Date Gurjit Jones MD [address] [place] [address] PCP - General 08/05/14
--- OUTSIDE RECORDS SUMMARY | 2024-04-04 09:19 | XMS_ITS | Encounter Summary ---
Author Organization [facility] Address [address] [place] [address] Phone Care Team Providers Care Intake Worker Name Role Phone Gurjit Jones MD Primary Care Provide r Encounter Details Date Type Department Care Team (Latest Contact Info) Description 09/21/2019 Orders Only [facility] Scanning, Provider Social History Tobacco Use Types Packs/Day Years Used Date Smoking Tobacco: Never Assessed Sex and Gender Information Value Date Recorded Sex Assigned at Not on file Legal Sex Male 7:20 PM GLOBAL MARKETING MANAGER Gender Identity Not on file Sexual Orientation Not on file documented as of this encounter Plan of Treatment Not on file documented as of this encounter Procedures Procedure Name Priority Date/Time Associated Diagnosis Comments SCAN - RADIOLOGY/IMAGING 09/21/2019 documented in this encounter Results * SCAN - RADIOLOGY/IMAGING (09/21/2019) Anatomical Region Laterality Modality Other us Provider Scanning Final Result documented in this encounter Visit Diagnoses Not on filedocumented in this encounter Care Teams Intake Worker Relationship Specialty Start Date End Date Gurjit Jones MD [address] [place] [address] PCP - General 08/05/14 documented as of this encounter
--- OUTSIDE RECORDS SUMMARY | 2024-04-04 09:19 | XMS_ITS | Encounter Summary ---
Author Organization [facility] Address [address] [place] [address] Phone Care Team Providers Care Metal Shaping Machine Operator Name Role Phone Gurjit Jones MD Primary Care Provide r Encounter Details Date Type Department Care Team (Latest Contact Info) Description 04/02/2020 Orders Only [facility] Scanning, Provider Social History Tobacco Use Types Packs/Day Years Used Date Smoking Tobacco: Never Sex and Gender Information Value Date Recorded Sex Assigned at Not on file Legal Sex Male 7:20 PM SPECIAL EDUCATOR Gender Identity Not on file Sexual Orientation Not on file documented as of this encounter Plan of Treatment Not on file documented as of this encounter Procedures Procedure Name Priority Date/Time Associated Diagnosis Comments SCAN - LABS 04/02/2020 documented in this encounter Results * SCAN - LABS (04/02/2020) us Provider Scanning Final Result documented in this encounter Visit Diagnoses Not on filedocumented in this encounter Care Teams Metal Shaping Machine Operator Relationship Specialty Start Date End Date Gurjit Jones MD [address] [place] [address] PCP - General 08/05/14 documented as of this encounter
== END 2024-04-04 08:57 | disposition home or self-care (01) ==
PROVIDERS: PCP Emergency Medicine; Visit Provider Nurse Practitioner Family
DX: R14.2 Eructation (principal)
CPT/HCPCS: 83013

== ENCOUNTER 2024-06-03 12:43 | Emergency (ER) | payer MEDICARE, SELFPAY ==
[2024-06-03] VITALS (23 sets, daily range): BP systolic 117–171; BP diastolic 71–104; PULSE 58–77; RESP 12–22; TEMP 36.6; O2SAT 93–100
--- NOTE | ~2024-06-03 | XR_ITS ---
XR chest 2V Ordering provider: Herminio Pereyra MD History: 69 years Male with . chest pain . Comparison: March 27, 2023 FINDINGS: MEDIASTINUM: The cardiac silhouette is not enlarged. LUNGS: No infiltrates, effusions or pneumothorax. OTHER: No free air under the diaphragm. Degenerative changes of the spine. Old compression fractures in the lower thoracic area. IMPRESSION: No acute cardiopulmonary pathology. Reviewed, dictated and finalized at location A.
--- NOTE | 2024-06-03 12:44 | ECG_ITS ---
Test Date: 2024-06-03 12:49:15 Measurements Intervals [place] Rate: 72 P: 50 MS: 159 QRS: 6 QRSD: 89 T: 74 QT: 363 QTc: 398 Interpretive Statements SINUS RHYTHM MINIMAL Q WAVES- HIGH LATERAL LEADS BORDERLINE ECG Compared to ECG 10/19/2023 23:46:48 HEART RATE HAS INCREASED Electronically Signed On 06-03-2024 16:49:47 CDT by Hima Muller D.O.
--- OUTSIDE RECORDS SUMMARY | 2024-06-03 12:47 | XMS_ITS | Clinical Summary ---
Author Organization [facility] [address] [facility] Address [address] [place] [address] Care Team Providers Care Insolvency Consultant Name Role Phone Gurjit Jones MD Primary Care Provider + [phone] Allergies No known active allergies Medications omeprazole [...] UBIQUINOL, ORAL Take by mouth. Active Fish Oil-[place]-3 Fatty Acids 360-1,200 mg Capsule Take 1 [...] - - Pulse - - Temperature 36.4 C (97.5 F) 10/16/2019 1:17 PM CDT Respiratory Rate - - Oxygen Saturation - [...] Colonography Q 5 years 2002 PNEUMOCOCCAL VACCINE 50+ YEARS (1 of 1 - PCV) 05/12/19 08 ZOSTER VACCINE (1 of 2) 05/12/2007 INFLUENZA VACCINE (#1) 2023 RSV VACCINE (60+ or ) (1 - 1-dose 75+ series) 2032 Insurance [facility] Care Teams Insolvency Consultant Relationship Specialty Start Date End Date Gurjit Jones MD [address] [place] [address] PCP - General Internal Medicine 09/24/19
--- OUTSIDE RECORDS SUMMARY | 2024-06-03 12:47 | XMS_ITS | Referral Summary ---
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 Gender Identity Not on file Sexual Orientation Not on file Last Filed Vital Signs Vital Sign Reading Time Taken Comments Blood Pressure 136/81 08/22/2020 8:12 AM CDT Pulse 52 08/22/2020 8:12 AM CDT Temperature 36.3 C (97.3 F) 10/29/2019 2:22 PM CDT Respiratory Rate - - Oxygen Saturation 98% 08/22/2020 8:12 AM CDT Inhaled Oxygen Concentration - - Weight 86.4 kg (190 lb 8 oz) 08/22/2020 8:12 AM CDT Height 175.3 cm (5' 9 ) 08/22/2020 8:12 AM CDT Body Mass Index 28.13 08/22/2020 8:12 AM CDT Plan of Treatment Not on file Insurance [facility] [place] [employer] CHOICE MEDICARE PPO Care Teams Animal Tech Relationship Specialty Start Date End Date Gurjit Jones MD [address] [place] [address] PCP - General 08/05/14
--- OUTSIDE RECORDS SUMMARY | 2024-06-03 12:47 | XMS_ITS | Encounter Summary ---
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
--- OUTSIDE RECORDS SUMMARY | 2024-06-03 12:47 | XMS_ITS | Clinical Summary ---
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
--- OUTSIDE RECORDS SUMMARY | 2024-06-03 12:47 | XMS_ITS | Encounter Summary ---
Author Organization [facility] Address [address] [facility] [place] [address] Phone Care Team Providers Care Creative Manager Name Role Phone Gurjit Jones MD Primary Care Provide r Encounter Details Date Type Department Care Team (Latest Contact Info) Description 01/30/2018 Orders Only [facility] Scanning, Provider Social History Tobacco Use Types Packs/Day Years Used Date Smoking Tobacco: Never Assessed Sex and Gender Information Value Date Recorded Sex Assigned at Not on file Legal Sex Male 7:20 PM CLIENT SERVICES VICE PRESIDENT Gender Identity Not on file Sexual Orientation Not on file documented as of this encounter Plan of Treatment Scheduled Orders Name Type Priority Associated Diagnoses Orde r Schedule SCAN - CARDIOLOGY Cardiac Services O rdered: 01/30/2018 documented as of this encounter Visit Diagnoses Not on filedocumented in this encounter Care Teams Creative Manager Relationship Specialty Start Date End Date Gurjit Jones MD [address] [place] [address] PCP - General 08/05/14 documented as of this encounter
--- OUTSIDE RECORDS SUMMARY | 2024-06-03 12:47 | XMS_ITS | Encounter Summary ---
Author Organization [facility] Address [address] [facility] [place] [address] Phone Care Team Providers Care Intelligence Director Name Role Phone Gurjit Jones MD Primary Care Provide r Encounter Details Date Type Department Care Team (Latest Contact Info) Description 09/21/2019 Orders Only [facility] Scanning, Provider Social History Tobacco Use Types Packs/Day Years Used Date Smoking Tobacco: Never Assessed Sex and Gender Information Value Date Recorded Sex Assigned at Not on file Legal Sex Male 7:20 PM SCRAPER MEAT Gender Identity Not on file Sexual Orientation [...] on filedocumented in this encounter Care Teams Intelligence Director Relationship Specialty Start Date End Date Gurjit Jones MD [address] [place] [address] PCP - General 08/05/14 documented as of this encounter
--- OUTSIDE RECORDS SUMMARY | 2024-06-03 12:47 | XMS_ITS | Encounter Summary ---
Author Organization [facility] Address [address] [place] [address] Phone Care Team Providers Care Operations Supervisor Chemical Cleaning Name Role Phone Gurjit Jones MD Primary Care Provide r Encounter Details Date Type Department Care Team (Latest Contact Info) Description 08/06/2015 Orders Only [facility] Scanning, Provider Social History Tobacco Use Types Packs/Day Years Used Date Smoking Tobacco: Never Assessed Sex and Gender Information Value Date Recorded Sex Assigned at Not on file Legal 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
--- OUTSIDE RECORDS SUMMARY | 2024-06-03 12:47 | XMS_ITS | Encounter Summary ---
Author Organization [facility] Address [address] [facility] [place] [address] Phone Care Team Providers Care Cut Off Man Name Role Phone Gurjit Jones MD Primary Care Provide r Encounter Details Date Type Department Care Team (Latest Contact Info) Description 11/05/2011 Orders Only [facility] Scanning, Provider Social History Tobacco Use Types Packs/Day Years Used Date Smoking Tobacco: Never Assessed Sex and Gender Information Value Date Recorded Sex Assigned at Not on file Legal Sex Male 7:20 PM 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
--- OUTSIDE RECORDS SUMMARY | 2024-06-03 12:47 | XMS_ITS | Encounter Summary ---
Author Organization 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
[2024-06-03 13:29] LABS: Basophils Percent Auto 0.6 % (0.2-1.2); Eosinophils Absolute Auto 0.1 K/mm3 (0-0.3); Eosinophils Percent Auto 1.6 % (0-4.4); Hematocrit 41.3 % (42.0-52.0); Hemoglobin 13.9 g/dL (14.0-18.0); Immature Granulocyte Absolute 0.02 K/mm3 (0.00-0.031); Immature Granulocyte Percent A 0.3 % (0-0.5); Lymphocytes Absolute Auto 2.24 K/mm3 (0.9-3.2); Lymphocytes Percent Auto 36.4 % (18.3-44.2); Mean Corpuscular HGB Conc 33.7 g/dl (32-36); Mean Corpuscular Hemoglobin 32.1 pg (26-34); Mean Corpuscular Volume 95.4 fl (80-100); Mean Platelet Volume 8.9 fl (7.4-10.4); Monocytes Absolute Auto 0.8 K/mm3 (0.1-0.6); Monocytes Percent Auto 12.7 % (2.6-8.5); Neutrophils Percent Auto 48.4 % (45.5-73.1); Platelet Count Result 271 k/mm3 (150-375); Red Blood Count 4.33 M/mm3 (4.6-6.20); Red Cell Distribution Width 12.6 % (11.5-14.5); White Blood Count 6.2 K/mm3 (4.5-10.0)
[2024-06-03 13:39] LABS: Alanine Aminotransferase 37 U/L (6-50); Albumin Level 4.7 g/dL (3.5-5.1); Alkaline Phosphatase 62 U/L (38-126); Anion Gap 9 mmol/L (4-12); Aspartate Amino Transferase 32 U/L (17-59); Bilirubin,Total 0.6 mg/dL (0.2-1.3); Blood Urea Nitrogen 16 mg/dL (9-20); Calcium 9.5 mg/dL (8.4-10.2); Carbon Dioxide 28 mmol/L (22-30); Chloride 103 mmol/L (98-107); Estimated CRCL calculation 60 ml/min; Estimated Glomerular Filt Rate > 60; Glucose 122 mg/dL (65-110); Lipase 83 U/L (23-300); Potassium 4.1 mmol/L (3.4-5.0); Sodium 140 mmol/L (137-145)
[2024-06-03 13:46] LABS: Partial Thromboplastin Time 30.2 Seconds (22.3-36.8); Prothrombin Time 12.9 Seconds (11.1-14.7)
[2024-06-03 13:50] LABS: Troponin I < 0.012 ng/mL (0.000-0.034)
--- OUTSIDE RECORDS SUMMARY | 2024-06-03 14:12 | XMS_ITS | Clinical Summary ---
Author Organization [facility] [address] Address [address] [place] [address] Care Team Providers Care Financial Center Manager Name Role Phone Gurjit Jones MD [...] 250 mg capsule Take by mouth Active oundxkys-wkp-YH-lyco pen-lutein (Centrum Silver Ultra Men's) 300-600-300 mcg [...] on file Legal Sex Male 7:20 PM AFTER SCHOOL COORDINATOR Gender Identity Not on file Sexual Orientation [...] (2 - Td or Tdap) 02/02/202607/2015 Insurance [employer] [place] [employer] [place] [employer] CHO[place] MEDICARE PPO Care Teams Financial Center Manager Relationship Specialty Start Date End Date Gurjit Jones MD [address] [place] [address] PCP - General 08/05/14
--- OUTSIDE RECORDS SUMMARY | 2024-06-03 14:12 | XMS_ITS | Encounter Summary ---
Author Organization [facility] Address [address] [facility] [place] [address] Phone Care Team Providers Care Senior Director Insight Name Role Phone Gurjit Jones MD Primary Care Provide r Encounter Details Date Type Department Care Team (Latest Contact Info) Description 01/30/2018 Orders Only [facility] Scanning, Provider Social History Tobacco Use Types Packs/Day Years Used Date Smoking Tobacco: Never Assessed Sex and Gender Information Value Date Recorded Sex Assigned at Not on file Legal Sex Male 7:20 PM RFP WRITER Gender Identity Not on file Sexual Orientation Not on file documented as of this encounter Plan of Treatment Scheduled Orders Name Type Priority Associated Diagnoses Orde r Schedule SCAN - CARDIOLOGY Cardiac Services O rdered: 01/30/2018 documented as of this encounter Visit Diagnoses Not on filedocumented in this encounter Care Teams Senior Director Insight Relationship Specialty Start Date End Date Gurjit Jones MD [address] [place] [address] PCP - General 08/05/14 documented as of this encounter
--- OUTSIDE RECORDS SUMMARY | 2024-06-03 14:12 | XMS_ITS | Encounter Summary ---
Author Organization [facility] Address [address] [place] [address] Phone Care Team Providers Care Dielectric Press Operator Name Role Phone Gurjit Jones MD Primary Care Provide r Encounter Details Date Type Department Care Team (Latest Contact Info) Description 09/21/2019 Orders Only [facility] Scanning, Provider Social History Tobacco Use Types Packs/Day Years Used Date Smoking Tobacco: Never Assessed Sex and Gender Information Value Date Recorded Sex Assigned at Not on file Legal Sex Male 7:20 PM DIRECTOR TELEVISION NEWS Gender Identity Not on file Sexual Orientation [...] on filedocumented in this encounter Care Teams Dielectric Press Operator Relationship Specialty Start Date End Date Gurjit Jones MD [address] [place] [address] PCP - General 08/05/14 documented as of this encounter
--- OUTSIDE RECORDS SUMMARY | 2024-06-03 14:12 | XMS_ITS | Encounter Summary ---
Author Organization [facility] Address [address] 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
--- OUTSIDE RECORDS SUMMARY | 2024-06-03 14:12 | XMS_ITS | Encounter Summary ---
Author Organization [facility] Address [address] [place] [address] Phone Care Team Providers Care Head Of Operation And Logistics Name Role Phone Gurjit Jones MD Primary Care Provide r Encounter Details Date Type Department Care Team (Latest Contact Info) Description 04/02/2020 Orders Only [facility] Scanning, Provider Social History Tobacco Use Types Packs/Day Years Used Date Smoking Tobacco: Never Sex and Gender Information Value Date Recorded Sex Assigned at Not on file Legal Sex Male 7:20 PM SAIL MAKER Gender Identity Not on file Sexual Orientation [...] on filedocumented in this encounter Care Teams Head Of Operation And Logistics Relationship Specialty Start Date End Date Gurjit Jones MD [address] [place] [address] PCP - General 08/05/14 documented as of this encounter
--- OUTSIDE RECORDS SUMMARY | 2024-06-03 14:12 | XMS_ITS | Clinical Summary ---
Author Organization [employer] [address] [facility] Address [address] [place] [address] Care Team Providers Care Band Saw Marker Name Role Phone Gurjit Jones MD Primary Care Provider + [phone] Allergies No known active allergies Medications omeprazole [...] UBIQUINOL, ORAL Take by mouth. Active Fish Oil-[place]-3 Fatty Acids 360-1,200 mg Capsule Take 1 [...] (1 - 1-dose 75+ series) 2032 Insurance [facility] PREFERRED Care Teams Band Saw Marker Relationship Specialty Start Date End Date Gurjit Jones MD [address] [place] [address] PCP - General Internal Medicine 09/24/19
--- OUTSIDE RECORDS SUMMARY | 2024-06-03 14:12 | XMS_ITS | Encounter Summary ---
Author Organization [facility] Address [address] [place] [address] Phone Care Team Providers Care Blanket Washer Name Role Phone Gurjit Jones MD Primary Care Provide r Encounter Details Date Type Department Care Team (Latest Contact Info) Description 08/06/2015 Orders Only [facility] Scanning, Provider Social History Tobacco Use Types Packs/Day Years Used Date Smoking Tobacco: Never Assessed Sex and Gender Information Value Date Recorded Sex Assigned at Not on file Legal Sex Male 7:20 PM MATERIALS DIRECTOR Gender Identity Not on file Sexual Orientation Not on file documented as of this encounter Plan of Treatment Scheduled Orders Name Type Priority Associated Diagnoses Orde r Schedule SCAN - CARDIOLOGY Cardiac Services O rdered: 08/06/2015 documented as of this encounter Visit Diagnoses Not on filedocumented in this encounter Care Teams Blanket Washer Relationship Specialty Start Date End Date Gurjit Jones MD [address] [place] [address] PCP - General 08/05/14 documented as of this encounter
--- OUTSIDE RECORDS SUMMARY | 2024-06-03 14:12 | XMS_ITS | Encounter Summary ---
Author Organization [facility] Address [address] [place] [address] Phone Care Team Providers Care Chief Investment Officer Name Role Phone Gurjit Jones MD Primary Care Provide r Encounter Details Date Type Department Care Team (Latest Contact Info) Description 06/23/2020 Orders Only [facility] Scanning, Provider Social History Tobacco Use Types Packs/Day Years Used Date Smoking Tobacco: Never Sex and Gender Information Value Date Recorded Sex Assigned at Not on file Legal Sex Male 7:20 PM 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
--- OUTSIDE RECORDS SUMMARY | 2024-06-03 14:12 | XMS_ITS | Referral Summary ---
Author Organization [facility] [address] Address [address] [place] [address] Care Team Providers Care Alpine Guide Name Role Phone Gurjit Jones MD Primary [...] 250 mg capsule Take by mouth Active nruiuyaj-rcm-JP-lyco pen-lutein (Centrum Silver Ultra Men's) 300-600-300 mcg [...] on file Legal Sex Male 7:20 PM SOFTWARE COMPUTER SPECIALIST Gender Identity Not on file Sexual [...] Plan of Treatment Not on file Insurance [facility] [employer] [place]IC[place] PPO Care Teams Alpine Guide Relationship Specialty Start Date End Date Gurjit Jones MD [address] [place] [address] PCP - General 08/05/14
[2024-06-03] MEDS: ASPIRIN 81 MG CHEWABLE TABLET 324 MG PO (14:26)
--- NOTE | 2024-06-03 14:46 | PC.NURSE ---
called lab to add on BNP and DDimer
--- NOTE | 2024-06-03 14:58 | ED.CHESTPAIN ---
HPI - Chest Pain General Chief Complaint: Chest Pain Stated Complaint: L. sided chest pain x2 days Time Seen by Provider: 06/03/24 14:01 Source: patient Mode of arrival: ambulatory Limitations: no limitations History of Present Illness HPI narrative: This is a 69-year-old male with PMH of HLD, HTN, GERD who presents to the ED for chief complaint of intermittent chest pain for the past 2-3 days. Patient states the pain comes on to the central/left chest and feels like it is in between the ribs at times. States that the pain is somewhat interscapular at times as well. States that he gets sharp shooting spasm like pain that lasts for few minutes. States that sometimes it lasts up to 30 minutes. He does feel like it gets worse in certain positions. He does feel that taking ibuprofen helps relieve the pain. Denies history of CAD or stents in the heart. Denies significant family cardiac history. Denies palpitations, numbness, weakness, sweats, nausea, vomiting, syncope, lightheadedness, abdominal pain, fevers, chills. Related Data Home Medications ?Medication ?Instructions ?Recorded ?Confirmed ?Last Taken ?Type aspirin 81 mg tablet,delayed 81 mg PO DAILY 09/14/19 05/15/24 Unknown History release magnesium 250 mg tablet 250 mg PO DAILY 09/14/19 05/15/24 Unknown History Allergies Allergy/AdvReac Type Severity Reaction Status Date / Time No Known Allergies Allergy Verified 06/03/24 12:44 Review of Systems Review of Systems: All systems as dictated in [facility] Past Medical History Medical History (Updated 06/03/24 @ 16:15 by René De Los Santos PA-C) IBS (irritable bowel syndrome) Influenza Change in hearing Chronic otitis externa Chest pain Benign prostatic hyperplasia with incomplete bladder emptying Acute otitis externa of right ear Urinary dribbling Schatzki's ring Rectal pain Pressure sensation in both ears Personal history of other diseases of the digestive system Periumbilical abdominal pain Other chronic pain Numerous moles Hyperglycemia Generalized abdominal pain Gastro-esophageal reflux disease without esophagitis Feeling of incomplete bladder emptying Drug-induced erectile dysfunction Chronic throat pain Abdominal pain of unknown cause Belching Fatigue Dark stools Hyperlipidemia GERD (gastroesophageal reflux disease) BPH (benign prostatic hyperplasia) HTN (hypertension) Surgical History Surgical History H/O inguinal hernia repair Family History Family History Father Patient's father is in good health Patient's father is , Onset Age: 92 Mother Family history of heart disease in male family member before age 55 Patient's mother is , Onset Age: 86 Sibling Patient's brother is Family history of malignant neoplasm Social History Social History Smoking status: Never smoker Second hand tobacco smoke exposure: No Alcohol intake: current Drinks per week: 4 Alcohol use details: beer Substance use: never Substance use type: does not use Current Housing: Decline to Answer Concerned About Future Housing: Decline to Answer Difficulty Paying Gas/Electric Bills: Decline to Answer Difficulty Paying for Meds: Decline to Answer Currently Unemployed: Decline to Answer Education: Decline to Answer Difficulty w/ Childcare or Family Care: Decline to Answer Living arrangements: alone Gender identity (if verbalized by the patient): Male Spiritual care concerns: No Exam Narrative: GENERAL: Well-appearing, well-nourished, and in no acute distress. HEAD: Normocephalic, atraumatic. EYES: PERRLA and EOMI. ENT: Nares clear, no rhinorrhea or epistaxis. Mucous membranes moist. Oropharynx without tonsillar hypertrophy exudate or other lesions. NECK: Supple. No adenopathy or masses. CHEST: No respiratory distress. Clear to auscultation. No wheezes rales or rhonchi HEART: Regular rate and rhythm. No murmur heard. Normal peripheral pulses. ABDOMEN: Soft, nontender, nondistended, normal active bowel sounds. MSK: Normal range of motion. No edema. SKIN: Warm, dry, no rash. NEURO: Alert and oriented x4. No focal deficits. PSYCH: Normal mood and affect. Course Vital Signs Vital signs: Vital Signs Temperature 97.9 F 06/03/24 12:52 Pulse Rate 77 06/03/24 12:52 Respiratory Rate 17 06/03/24 12:52 Blood Pressure 142/90 H 06/03/24 12:52 Pulse Oximetry 100 06/03/24 12:52 Oxygen Delivery Room Air 06/03/24 12:52 Temperature 97.9 F 06/03/24 12:52 Pulse Rate 66 06/03/24 14:45 Respiratory Rate 15 06/03/24 14:45 Blood Pressure 171/104 H 06/03/24 14:32 Pulse Oximetry 98 06/03/24 14:45 Oxygen Delivery Room Air 06/03/24 14:41 MDM - Chest Pain MDM Narrative Medical decision making narrative: This is a 69-year-old male who presents to the ED for chief complaint of intermittent chest pains over the past 2-3 days. Vitals are normal. He is pain-free on arrival to the ER. EKG initially showing a normal sinus rhythm with no acute ischemic findings. Lab work shows negative troponin at 0 and 3 hour anahi. D-dimer is negative and wells score is low for PE. BNP normal. Lipase normal. Chest x-ray shows no acute findings. Heart score is 3. He remains pain free on re-evaluation an EKG is unchanged. Presentation most likely consistent with musculoskeletal pain. Low concern for acute coronary syndrome although this may be stable angina. Low concern for aortic dissection or pulmonary embolism. He feels comfortable following up with his doctor this week regarding chest pain. Strict return precautions were given. Patient will be discharged in stable condition. Patient is understanding and agreeable with plan for discharge with PCP follow-up. Lab Data 06/03/24 13:23 06/03/24 13:23 Labs: Lab Results 06/03/24 06/03/24 Range/Units 13:23 16:20 WBC 6.2 (4.5-10.0) K/mm3 RBC 4.33 L (4.6-6.20) M/mm3 Hgb 13.9 L (14.0-18.0) g/dL Hct 41.3 L (42.0-52.0) % MCV 95.4 (80-100) fl MCH 32.1 (26-34) pg MCHC 33.7 (32-36) g/dl RDW 12.6 (11.5-14.5) % Plt Count 271 (150-375) k/mm3 MPV 8.9 (7.4-10.4) fl Immature Gran % (Auto) 0.3 (0-0.5) % Neut % (Auto) 48.4 (45.5-73.1) % Lymph % (Auto) 36.4 (18.3-44.2) % [place] % (Auto) 12.7 H (2.6-8.5) % Eos % (Auto) 1.6 (0-4.4) % Baso % (Auto) 0.6 (0.2-1.2) % Lymph # (Auto) 2.24 (0.9-3.2) K/mm3 [place] # (Auto) 0.8 H (0.1-0.6) K/mm3 Eos # (Auto) 0.1 (0-0.3) K/mm3 Baso # (Auto) 0.0 (0.0-0.1) K/mm3 Abs Immat Gran (auto) 0.02 (0.00-0.031) K/mm3 Absolute Neuts (auto) 3.0 (1.3-6.7) K/mm3 Absolute Nucleated RBC 0.000 (0.0-0.012) K/mm3 Nucleated RBC % 0.0 (0.0-0.2) % PT 12.9 (11.1-14.7) Seconds INR 1.0 APTT 30.2 (22.3-36.8) Seconds D-Dimer 0.47 (<0.48) ug/mL Sodium 140 (137-145) mmol/L Potassium 4.1 (3.4-5.0) mmol/L Chloride 103 (98-107) mmol/L Carbon Dioxide 28 (22-30) mmol/L Anion Gap 9 (4-12) mmol/L BUN 16 (9-20) mg/dL Creatinine 1.06 (0.7-1.3) mg/dL Estim Creat Clear Calc 60 ml/min Estimated GFR > 60 (59 - ) Glucose 122 H (65-110) mg/dL Calcium 9.5 (8.4-10.2) mg/dL Total Bilirubin 0.6 (0.2-1.3) mg/dL AST 32 (17-59) U/L ALT 37 (6-50) U/L Alkaline Phosphatase 62 (38-126) U/L Troponin I < 0.012 < 0.012 (0.000-0.034) ng/mL NT-Pro-B Natriuret Pep < 20 (19.9-100) pg/mL Total Protein 8.0 (6.3-8.2) g/dL Albumin 4.7 (3.5-5.1) g/dL Lipase 83 (23-300) U/L ECG Data EKG #1: ECG completion date: 06/03/24 ECG completion time: 12:49 Prior ECG tracings: available for review Interpretation: Sinus rhythm Normal QTC Normal QRS No acute ischemic findings Discharge Plan Discharge Clinical Impression: Chest pain Patient Disposition: Home, Self-Care Condition: Stable Instructions: Antibiotic Form Additional Instructions: Your exam and imaging today are reassuring overall. Heart markers are normal. Please follow-up very closely with your PCP this week she may still need a stress test. Please return to the ER for any new or worsening symptoms such as increasing chest pain, shortness of breath lightheadedness or sweats. Patient Language: Nicaraguan Prescriptions: No Action aspirin 81 mg tablet,delayed release (DR/EC) 81 mg PO DAILY magnesium 250 mg tablet 250 mg PO DAILY amitriptyline 10 mg tablet 10 mg PO QHS 30 Days Qty: 30 11RF omeprazole 40 mg capsule,delayed release(DR/EC) See Rx Instructions .ROUTE .COMPLEX Qty: 180 3RF Dose Instruction: TAKE 1 CAPSULE BY MOUTH TWICE DAILY BEFORE MEAL(S) Rx Instructions: TAKE 1 CAPSULE BY MOUTH TWICE DAILY BEFORE MEAL(S) dicyclomine 10 mg capsule 10 mg PO TID Qty: 30 0RF cholecalciferol (vitamin D3) 50 mcg (2,000 unit) capsule 100 mcg PO DAILY Qty: 180 2RF Phazyme 250 mg capsule 250 mg PO BID 30 Days Qty: 60 5RF Rx Instructions: administer after meals temazepam 15 mg capsule 15 mg PO QHS PRN (Reason: sleep) Qty: 20 0RF lisinopril 20 mg tablet See Rx Instructions .ROUTE .COMPLEX Qty: 90 2RF Dose Instruction: Take 1 tablet by mouth once daily Rx Instructions: Take 1 tablet by mouth once daily fenofibrate nanocrystallized 48 mg tablet See Rx Instructions .ROUTE .COMPLEX Qty: 90 2RF Dose Instruction: Take 1 tablet by mouth once daily Rx Instructions: Take 1 tablet by mouth once daily simvastatin 20 mg tablet See Rx Instructions .ROUTE .COMPLEX Qty: 90 2RF Dose Instruction: Take 1 tablet by mouth in the evening Rx Instructions: Take 1 tablet by mouth in the evening Follow-up/Referrals: Gurjit Jones MD [Primary Care Provider] - Time of Disposition: 17:04 Quality HEART score for chest pain patients History: slightly suspicious ECG: normal Age: > or = to 65 years Risk factors: 1 or 2 risk factors Troponin: < or = to 1x normal limit Heart score: 3
[2024-06-03 15:01] LABS: D Dimer 0.47 ug/mL (<0.48)
[2024-06-03 15:03] LABS: NT Pro B Type Natriuretic Pept < 20 pg/mL (19.9-100)
--- NOTE | 2024-06-03 16:16 | ECG_ITS ---
Test Date: 2024-06-03 16:20:37 Measurements Intervals [place] Rate: 61 P: 52 [place]: 171 QRS: 10 QRSD: 94 T: 63 QT: 384 QTc: 388 Interpretive Statements SINUS RHYTHM MINIMAL Q WAVES- HIGH LATERAL LEADS BASELINE ARTIFACT- I, II, III, AVR, AVF, V1, V3 BORDERLINE ECG Compared to ECG 06/03/2024 12:49:15 No significant changes Electronically Signed On 06-03-2024 16:53:31 CDT by Hima Muller D.O.
[2024-06-03 16:47] LABS: Troponin I < 0.012 ng/mL (0.000-0.034)
== END 2024-06-03 17:54 | disposition home or self-care (01) ==
PROVIDERS: Emergency Medicine; Emergency Provider Physician Assistant; PCP Emergency Medicine
DX: R07.9 Chest pain, unspecified (principal); I10 Essential (primary) hypertension; E78.5 Hyperlipidemia, unspecified; N40.1 Benign prostatic hyperplasia with lower urinary tract symptoms; R39.14 Feeling of incomplete bladder emptying; K21.9 Gastro-esophageal reflux disease without esophagitis; K58.9 Irritable bowel syndrome, unspecified; Z79.82 Long term (current) use of aspirin; Z79.899 Other long term (current) drug therapy; R94.31 Abnormal electrocardiogram [ECG] [EKG]
CPT/HCPCS: 36415; 71046; 80053; 83690; 83880; 84484; 85025; 85380; 85610; 85730; 93005; 99284; A9270

== ENCOUNTER 2024-06-18 08:39 | Outpatient (CLI) | payer MEDICARE, SELFPAY ==
--- NOTE | 2024-06-18 08:45 | EST_ITS ---
Patient Info Name: Roddy Guardado Age: 69 years : 1955 Gender: Male Ht: 69 in Wt: 200 lbs BSA: 2.12 m2 Exam Date: 06/18/2024 9:04 AM Exam Location: Echo Lab Patient Status: Outpatient Admit Date: 06/18/2024 Staff Ordering Physician: Gurjit Jones MD Attending Provider: Gurjit Jones MD Exercise Technologist: Aylin Fox RDCS Exercise Physician: Hima Muller DO Exam Type: CA stress test treadmill Study Info Indications R06.02 - Shortness of breath A treadmill exercise stress test was performed. Summary 1. 1. Negative Inocencio exercise stress test for ischemic ST changes by ECG criteria. 2. 2. Good functional capacity, achieving 10 METs of workload. 3. 3. Baseline hypertension. 4. 4. Appropriate HR response to exercise. 5. 5. Appropriate HR recovery at 1 minute post exercise. 6. 6. No imaging with stress testing. 7. 7. Patient informed of the above results. Protocol: Inocencio Stress ECG Details Stage: REST Duration (min): 2 min : 36 sec Speed (mph): 0.0 Grade (%): 0 HR (bpm): 61 SBP (mmHg): 156 DBP (mmHg): 91 METS: --- Stage: REST Duration (min): 6 min : 1 sec Speed (mph): 0.0 Grade (%): 0 HR (bpm): 82 SBP (mmHg): 156 DBP (mmHg): 91 METS: --- Stage: STAGE 1 Duration (min): 1 min : 0 sec Speed (mph): 1.7 Grade (%): 10 HR (bpm): 90 SBP (mmHg): 156 DBP (mmHg): 91 METS: --- Stage: STAGE 1 Duration (min): 2 min : 0 sec Speed (mph): 1.7 Grade (%): 10 HR (bpm): 91 SBP (mmHg): 156 DBP (mmHg): 91 METS: --- Stage: STAGE 1 Duration (min): 3 min : 0 sec Speed (mph): 1.7 Grade (%): 10 HR (bpm): 93 SBP (mmHg): 129 DBP (mmHg): 87 METS: --- Stage: STAGE 2 Duration (min): 1 min : 0 sec Speed (mph): 2.5 Grade (%): 12 HR (bpm): 103 SBP (mmHg): 129 DBP (mmHg): 87 METS: --- Stage: STAGE 2 Duration (min): 2 min : 0 sec Speed (mph): 2.5 Grade (%): 12 HR (bpm): 106 SBP (mmHg): 171 DBP (mmHg): 94 METS: --- Stage: STAGE 2 Duration (min): 3 min : 0 sec Speed (mph): 2.5 Grade (%): 12 HR (bpm): 111 SBP (mmHg): 171 DBP (mmHg): 94 METS: --- Stage: STAGE 3 Duration (min): 1 min : 0 sec Speed (mph): 3.4 Grade (%): 14 HR (bpm): 126 SBP (mmHg): 188 DBP (mmHg): 89 METS: --- Stage: STAGE 3 Duration (min): 2 min : 0 sec Speed (mph): 3.4 Grade (%): 14 HR (bpm): 133 SBP (mmHg): 188 DBP (mmHg): 89 METS: --- Stage: STAGE 3 Duration (min): 2 min : 0 sec Speed (mph): 3.4 Grade (%): 14 HR (bpm): 133 SBP (mmHg): 188 DBP (mmHg): 89 METS: --- Stage: RECOVERY Duration (min): 0 min : 59 sec Speed (mph): 0.0 Grade (%): 0 HR (bpm): 98 SBP (mmHg): 207 DBP (mmHg): 84 METS: --- Stage: RECOVERY Duration (min): 1 min : 59 sec Speed (mph): 0.0 Grade (%): 0 HR (bpm): 85 SBP (mmHg): 207 DBP (mmHg): 84 METS: --- Stage: RECOVERY Duration (min): 2 min : 59 sec Speed (mph): 0.0 Grade (%): 0 HR (bpm): 83 SBP (mmHg): 164 DBP (mmHg): 100 METS: --- Stage: RECOVERY Duration (min): 3 min : 59 sec Speed (mph): 0.0 Grade (%): 0 HR (bpm): 79 SBP (mmHg): 164 DBP (mmHg): 100 METS: --- Stage: RECOVERY Duration (min): 4 min : 59 sec Speed (mph): 0.0 Grade (%): 0 HR (bpm): 82 SBP (mmHg): 142 DBP (mmHg): 97 METS: --- Stage: RECOVERY Duration (min): 5 min : 4 sec Speed (mph): 0.0 Grade (%): 0 HR (bpm): 82 SBP (mmHg): 142 DBP (mmHg): 97 METS: --- Rest HR: 82 bpm Peak HR: 134 bpm Rest Sys BP: 156 mmHg Peak Sys BP: 207 mmHg Max Pred HR: 153 bpm % Max Pred HR: 88 % Target HR: 130 bpm Max RPP: 27,738 bpm*mmHg Campbell Score: 3 Termination Reason: Reached target heart rate or workload Cardiac Symptoms: Shortness of breath Max ST Seg Deviation: 0.90 mm Total Time: 8 min : 0 sec Rest Turner BP: 91 mmHg Peak Turner BP: 84 mmHg Angina Score: None Total METS: 10.3 Resting ECG Sinus rhythm. Stress ECG No ST changes. Arrhythmias None. Report Signatures
--- OUTSIDE RECORDS SUMMARY | 2024-06-18 09:20 | XMS_ITS | Encounter Summary ---
Author Organization [facility] Address [address] [place] [address] Phone Care Team Providers Care Line Construction Supervisor Name Role Phone Gurjit Jones MD Primary Care Provide r Encounter Details Date Type Department Care Team (Latest Contact Info) Description 04/02/2020 Orders Only [facility] Scanning, Provider Social History Tobacco Use Types Packs/Day Years Used Date Smoking Tobacco: Never Sex and Gender Information Value Date Recorded Sex Assigned at Not on file Legal Sex Male 7:20 PM LEADER TIER Gender Identity Not on file Sexual Orientation [...] on filedocumented in this encounter Care Teams Line Construction Supervisor Relationship Specialty Start Date End Date Gurjit Jones MD [address] [place] [address] PCP - General 08/05/14 documented as of this encounter
--- OUTSIDE RECORDS SUMMARY | 2024-06-18 09:20 | XMS_ITS | Encounter Summary ---
Author Organization [facility] Address [address] [place] [address] Phone Care Team Providers Care Satellite Dish Installer Name Role Phone Gurjit Jones MD Primary Care Provide r Encounter Details Date Type Department Care Team (Latest Contact Info) Description 11/05/2011 Orders Only [facility] Scanning, Provider Social History Tobacco Use Types Packs/Day Years Used Date Smoking Tobacco: Never Assessed Sex and Gender Information Value Date Recorded Sex Assigned at Not on file Legal Sex Male 7:20 PM INSPECTOR PRECISION ASSEMBLY Gender Identity Not on file Sexual Orientation Not on file documented as of this encounter Plan of Treatment Scheduled Orders Name Type Priority Associated Diagnoses Orde r Schedule SCAN - CARDIOLOGY Cardiac Services O rdered: 11/05/2011 documented as of this encounter Visit Diagnoses Not on filedocumented in this encounter Care Teams Satellite Dish Installer Relationship Specialty Start Date End Date Gurjit Jones MD [address] [place] [address] PCP - General 08/05/14 documented as of this encounter
--- OUTSIDE RECORDS SUMMARY | 2024-06-18 09:20 | XMS_ITS | Clinical Summary ---
Author Organization [employer] [address] [facility] Address [address] [place] [address] Care Team Providers Care Flight Engineer Performance Qualified Name Role Phone Gurjit Jones MD Primary Care Provider + [phone] Allergies No known active allergies Medications omeprazole [...] UBIQUINOL, ORAL Take by mouth. Active Fish Oil-Buford-3 Fatty Acids 360-1,200 mg Capsule Take 1 [...] (1 - 1-dose 75+ series) 2032 Insurance [facility] PREFERRED Care Teams Flight Engineer Performance Qualified Relationship Specialty Start Date End Date Gurjit Jones MD [address] [place] [address] PCP - General Internal Medicine 09/24/19
--- OUTSIDE RECORDS SUMMARY | 2024-06-18 09:20 | XMS_ITS | Encounter Summary ---
Author Organization [facility] Address [address] [place] [address] Phone Care Team Providers Care Roller Skate Repairer Name Role Phone Gurjit Jones MD Primary Care Provide r Encounter Details Date Type Department Care Team (Latest Contact Info) Description 01/30/2018 Orders Only [facility] Scanning, Provider Social History Tobacco Use Types Packs/Day Years Used Date Smoking Tobacco: Never Assessed Sex and Gender Information Value Date Recorded Sex Assigned at Not on file Legal 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
--- OUTSIDE RECORDS SUMMARY | 2024-06-18 09:20 | XMS_ITS | Referral Summary ---
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
--- OUTSIDE RECORDS SUMMARY | 2024-06-18 09:20 | XMS_ITS | Encounter Summary ---
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
--- OUTSIDE RECORDS SUMMARY | 2024-06-18 09:20 | XMS_ITS | Encounter Summary ---
Author Organization [facility] Address [address] [place] [address] Phone Care Team Providers Care Enterprise Systems Manager Name Role Phone Gurjit Jones MD Primary Care Provide r Encounter Details Date Type Department Care Team (Latest Contact Info) Description 08/06/2015 Orders Only [facility] Scanning, Provider Social History Tobacco Use Types Packs/Day Years Used Date Smoking Tobacco: Never Assessed Sex and Gender Information Value Date Recorded Sex Assigned at Not on file Legal 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
--- OUTSIDE RECORDS SUMMARY | 2024-06-18 09:20 | XMS_ITS | Clinical Summary ---
Author Organization 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
--- OUTSIDE RECORDS SUMMARY | 2024-06-18 09:20 | XMS_ITS | Encounter Summary ---
Author Organization [facility] Address [address] [place] [address] Phone Care Team Providers Care Hairspring Assembler Name Role Phone Gurjit Jones MD Primary Care Provide r Encounter Details Date Type Department Care Team (Latest Contact Info) Description 09/21/2019 Orders Only [facility] Scanning, Provider Social History Tobacco Use Types Packs/Day Years Used Date Smoking Tobacco: Never Assessed Sex and Gender Information Value Date Recorded Sex Assigned at Not on file 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
== END 2024-06-18 08:40 | disposition home or self-care (01) ==
LOC: ANHCARD 08:40
PROVIDERS: PCP Emergency Medicine; Visit Provider Emergency Medicine
DX: R06.02 Shortness of breath (principal)
CPT/HCPCS: 93017

== ENCOUNTER 2024-07-09 03:47 | Emergency (ER) | payer MEDICARE, SELFPAY ==
--- NOTE | ~2024-07-09 | CT_ITS ---
CT Scan of the Chest without Contrast: Clinical Indication: Injury Technique: Contiguous sections were acquired throughout the chest without intravenous contrast. Dose reduction technique was used on this scan by utilizing automated exposure control and iterative recon struction technique. The dose-length product (DLP) was 290.91 mGy-cm. COMPARISON: 10/20/2023 Findings: There is no evidence of any significant mediastinal, hilar or axillary lymphadenopathy. The mediastin al soft tissues appear normal. There is no evidence of pleural or pericardial effusion. The lungs are clear. No pulmonary nodules or infiltrates are noted. No pneumothorax. Images through the upper abdomen reveal no abnormalities. There is an acute nondisplaced fracture at the posterior left 10th rib. Probable mild chronic loss of height of T8 and T9. Impression: Acute fracture the posterior left 10th rib. Probable mild chronic loss of height of T8 and T9. No pulmonary abnormality. Reviewed, dictated and finalized at [facility]. Impression: Acute fracture the posterior left 10th rib. Probable mild chronic loss of height of T8 and T9. No pulmonary abnormality.
--- OUTSIDE RECORDS SUMMARY | 2024-07-09 03:49 | XMS_ITS | Clinical Summary ---
Author Organization [facility] [address] Address [address] [place] [address] Care Team Providers Care Facer Operator Name Role Phone Gurjit Jones MD [...] 250 mg capsule Take by mouth Active ordnvrvv-swt-HW-lyco pen-lutein (Centrum Silver Ultra Men's) 300-600-300 mcg [...] on file Legal Sex Male 7:20 PM RESPONDER Gender Identity Not on file Sexual Orientation [...] (2 - Td or Tdap) 02/02/202607/2015 [place] Care Teams Facer Operator Relationship Specialty Start Date End Date Gurjit Jones MD [address] [place] [address] PCP - General 08/05/14
--- OUTSIDE RECORDS SUMMARY | 2024-07-09 03:49 | XMS_ITS | Encounter Summary ---
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
--- OUTSIDE RECORDS SUMMARY | 2024-07-09 03:49 | XMS_ITS | Referral Summary ---
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
--- OUTSIDE RECORDS SUMMARY | 2024-07-09 03:49 | XMS_ITS | Encounter Summary ---
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
--- OUTSIDE RECORDS SUMMARY | 2024-07-09 03:49 | XMS_ITS | Encounter Summary ---
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
--- OUTSIDE RECORDS SUMMARY | 2024-07-09 03:49 | XMS_ITS | Encounter Summary ---
Author Organization [facility] Address [address] [place] [address] Phone Care Team Providers Care Vp Digital Marketing Name Role Phone Gurjit Jones MD Primary Care Provide r Encounter Details Date Type Department Care Team (Latest Contact Info) Description 09/21/2019 Orders Only [facility] Scanning, Provider Social History Tobacco Use Types Packs/Day Years Used Date Smoking Tobacco: Never Assessed Sex and Gender Information Value Date Recorded Sex Assigned at Not on file Legal Sex Male 7:20 PM IRONMOLDER Gender Identity Not on file Sexual Orientation [...] on filedocumented in this encounter Care Teams Vp Digital Marketing Relationship Specialty Start Date End Date Gurjit Jones MD [address] [place] [address] PCP - General 08/05/14 documented as of this encounter
--- OUTSIDE RECORDS SUMMARY | 2024-07-09 03:49 | XMS_ITS | Encounter Summary ---
Author Organization 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
--- OUTSIDE RECORDS SUMMARY | 2024-07-09 03:49 | XMS_ITS | Encounter Summary ---
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
--- OUTSIDE RECORDS SUMMARY | 2024-07-09 03:49 | XMS_ITS | Clinical Summary ---
Author Organization [employer] [address] [facility] Address [address] [place] [address] Care Team Providers Care Information Systems Manager Name Role Phone Gurjit Jones MD Primary Care Provider + [phone] Allergies No known active allergies Medications omeprazole [...] UBIQUINOL, ORAL Take by mouth. Active Fish Oil-Heath-3 Fatty Acids 360-1,200 mg Capsule Take 1 [...] (1 - 1-dose 75+ series) 2032 Insurance [facility] PREFERRED Care Teams Information Systems Manager Relationship Specialty Start Date End Date Gurjit Jones MD [address] [place] [address] PCP - General Internal Medicine 09/24/19
[2024-07-09 03:53] VITALS: BP 165/100; PULSE 68; RESP 18; TEMP 36.8; O2SAT 97
--- NOTE | 2024-07-09 04:52 | ED.GENADULT ---
HPI - General Adult General Chief complaint: Back Pain/Injury Stated complaint: back pain Time Seen by Provider: 07/09/24 04:21 History of Present Illness HPI narrative: This is a 69-year-old male presenting with back pain x1 day. Patient was cutting down a tree when 1 of the tree branches fell down swung and struck him in the back. he has a small abrasion over the left posterior thorax. Patient has been in significant pain is been having difficulty sleeping because he cannot get comfortable. He is denying shortness of breath, abdominal pain nausea vomiting or diarrhea. Related Data Home Medications ?Medication ?Instructions ?Recorded ?Confirmed ?Last Taken ?Type aspirin 81 mg tablet,delayed 81 mg PO DAILY 09/14/19 06/19/24 Unknown History release magnesium 250 mg tablet 250 mg PO DAILY 09/14/19 06/19/24 Unknown History Allergies Allergy/AdvReac Type Severity Reaction Status Date / Time No Known Allergies Allergy Verified 07/09/24 03:58 PMFSH Past Medical History Medical History IBS (irritable bowel syndrome) Influenza Change in hearing Chronic otitis externa Chest pain Benign prostatic hyperplasia with incomplete bladder emptying Acute otitis externa of right ear Urinary dribbling Schatzki's ring Rectal pain Pressure sensation in both ears Personal history of other diseases of the digestive system Periumbilical abdominal pain Other chronic pain Numerous moles Hyperglycemia Generalized abdominal pain Gastro-esophageal reflux disease without esophagitis Feeling of incomplete bladder emptying Drug-induced erectile dysfunction Chronic throat pain Abdominal pain of unknown cause Belching Fatigue Dark stools Hyperlipidemia GERD (gastroesophageal reflux disease) BPH (benign prostatic hyperplasia) HTN (hypertension) Surgical History Surgical History H/O inguinal hernia repair Family History Family History Father Patient's father is in good health Patient's father is , Onset Age: 92 Mother Family history of heart disease in male family member before age 55 Patient's mother is , Onset Age: 86 Sibling Patient's brother is Family history of malignant neoplasm Social History Social History Smoking status: Never smoker Second hand tobacco smoke exposure: No Alcohol intake: current Drinks per week: 4 Alcohol use details: beer Substance use: never Substance use type: does not use Do You Feel Safe in your Home?: Yes Lack of Transportation: No Lack of Food: Never True Current Housing: I Have Housing Concerned About Future Housing: No Difficulty Paying Gas/Electric Bills: No Difficulty Paying for Meds: No Currently Unemployed: No Education: High School Diploma/GED Difficulty w/ Childcare or Family Care: No Living arrangements: alone Gender identity (if verbalized by the patient): Male Spiritual care concerns: No Exam Narrative: APPEARANCE: No apparent distress. Head: atraumatic. EYES: EOMI, NOSE: Atraumatic NECK: Trachea midline RESPIRATORY: No increased rate of breathing clear to auscultation CARDIOVASCULAR: RRR, no peripheral edema ABDOMINAL: Non-distended MUSCULOSKELETAl: Abrasion over the left posterior thorax with point tenderness, no tenderness to the rib cage lateral in the PE loading. NEURO: Alert. Moving 4/4 extremities SKIN:: Warm, dry. Normal color PSYCHIATRIC: Normal affect Course Vital Signs Vital signs: Vital Signs Temperature 98.2 F 07/09/24 03:53 Pulse Rate 68 07/09/24 03:53 Respiratory Rate 18 07/09/24 03:53 Blood Pressure 165/100 H 07/09/24 03:53 Pulse Oximetry 97 07/09/24 03:53 Oxygen Delivery Room Air 07/09/24 03:53 Temperature 98.2 F 07/09/24 03:53 Pulse Rate 68 07/09/24 03:53 Respiratory Rate 18 07/09/24 03:53 Blood Pressure 165/100 H 07/09/24 03:53 Pulse Oximetry 97 07/09/24 03:53 Oxygen Delivery Room Air 07/09/24 03:53 Medical Decision Making [facility] Narrative Medical decision making narrative: -Course: 69-year-old male presenting with back pain after being struck by a tree branch. CT chest ordered to evaluate for rib injury. CT showed a nondisplaced 11th posterior rib fracture. No pneumothorax. Patient will be treated with pain medication / incentive spirometry. Given return precautions for pneumonia or shortness of breath. -DDX includes but is not limited to: Rib contusion, rib fracture, pneumothorax Vital Signs Vital Signs: Vital Signs Temperature 98.2 F 07/09/24 03:53 Pulse Rate 68 07/09/24 03:53 Respiratory Rate 18 07/09/24 03:53 Blood Pressure 165/100 H 07/09/24 03:53 Pulse Oximetry 97 07/09/24 03:53 Oxygen Delivery Room Air 07/09/24 03:53 Temperature 98.2 F 07/09/24 03:53 Pulse Rate 68 07/09/24 03:53 Respiratory Rate 18 07/09/24 03:53 Blood Pressure 165/100 H 07/09/24 03:53 Pulse Oximetry 97 07/09/24 03:53 Oxygen Delivery Room Air 07/09/24 03:53 Discharge Plan Discharge Clinical Impression: Fracture of rib Patient Disposition: Home Condition: Stable Instructions: Antibiotic Form, Rib Fracture (ED) Additional Instructions: You were seen in the emergency department for back pain. You have a fractured rib. Please use the incentive spirometer 10 times per hour while awake. Please use the Motrin Tylenol Robaxin lidocaine patches as instructed. If you develop fevers, shortness of breath, or feel like you are getting sick with pneumonia please return to the ED immediately. Patient Language: Amharic Prescriptions: New ibuprofen 800 mg tablet 800 mg PO TID PRN (Reason: pain) 7 Days Qty: 21 0RF acetaminophen 500 mg tablet 1,000 mg PO TID PRN (Reason: patricio) 7 Days Qty: 42 0RF methocarbamol 750 mg tablet 1,500 mg PO TID Qty: 45 0RF lidocaine 5 % adhesive patch,medicated 1 patch topical DAILY Qty: 15 0RF Rx Instructions: leave on most painful area for up to 12 hrs No Action aspirin 81 mg tablet,delayed release (DR/EC) 81 mg PO DAILY magnesium 250 mg tablet 250 mg PO DAILY amitriptyline 10 mg tablet 10 mg PO QHS 30 Days Qty: 30 11RF omeprazole 40 mg capsule,delayed release(DR/EC) See Rx Instructions .ROUTE .COMPLEX Qty: 180 3RF Dose Instruction: TAKE 1 CAPSULE BY MOUTH TWICE DAILY BEFORE MEAL(S) Rx Instructions: TAKE 1 CAPSULE BY MOUTH TWICE DAILY BEFORE MEAL(S) dicyclomine 10 mg capsule 10 mg PO TID Qty: 30 0RF cholecalciferol (vitamin D3) 50 mcg (2,000 unit) capsule 100 mcg PO DAILY Qty: 180 2RF Phazyme 250 mg capsule 250 mg PO BID 30 Days Qty: 60 5RF Rx Instructions: administer after meals temazepam 15 mg capsule 15 mg PO QHS PRN (Reason: sleep) Qty: 20 0RF lisinopril 20 mg tablet See Rx Instructions .ROUTE .COMPLEX Qty: 90 2RF Dose Instruction: Take 1 tablet by mouth once daily Rx Instructions: Take 1 tablet by mouth once daily fenofibrate nanocrystallized 48 mg tablet See Rx Instructions .ROUTE .COMPLEX Qty: 90 2RF Dose Instruction: Take 1 tablet by mouth once daily Rx Instructions: Take 1 tablet by mouth once daily simvastatin 20 mg tablet See Rx Instructions .ROUTE .COMPLEX Qty: 90 2RF Dose Instruction: Take 1 tablet by mouth in the evening Rx Instructions: Take 1 tablet by mouth in the evening Follow-up/Referrals: UNKNOWN,DOCTOR [Primary Care Provider] -
--- OUTSIDE RECORDS SUMMARY | 2024-07-09 04:56 | XMS_ITS | Encounter Summary ---
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
--- OUTSIDE RECORDS SUMMARY | 2024-07-09 04:56 | XMS_ITS | Encounter Summary ---
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
--- OUTSIDE RECORDS SUMMARY | 2024-07-09 04:56 | XMS_ITS | Encounter Summary ---
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
--- OUTSIDE RECORDS SUMMARY | 2024-07-09 04:56 | XMS_ITS | Clinical Summary ---
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
--- OUTSIDE RECORDS SUMMARY | 2024-07-09 04:56 | XMS_ITS | Encounter Summary ---
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
--- OUTSIDE RECORDS SUMMARY | 2024-07-09 04:56 | XMS_ITS | Encounter Summary ---
Author Organization [facility] Address [address] [place] [address] Phone Care Team Providers Care Surgical Elastic Knitter Name Role Phone Gurjit Jones MD Primary Care Provide r Encounter Details Date Type Department Care Team (Latest Contact Info) Description 09/21/2019 Orders Only [facility] Scanning, Provider Social History Tobacco Use Types Packs/Day Years Used Date Smoking Tobacco: Never Assessed Sex and Gender Information Value Date Recorded Sex Assigned at Not on file 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
--- OUTSIDE RECORDS SUMMARY | 2024-07-09 04:56 | XMS_ITS | Clinical Summary ---
Author Organization [employer] [address] [facility] Address [address] [place] [address] Care Team Providers Care Dispatch Officer Name Role Phone Gurjit Jones MD Primary Care Provider + [phone] Allergies No known active allergies Medications omeprazole [...] UBIQUINOL, ORAL Take by mouth. Active Fish Oil-[place]-3 Fatty Acids 360-1,200 mg Capsule Take 1 [...] (1 - 1-dose 75+ series) 2032 Insurance [facility] PREFERR[facility] Care Teams Dispatch Officer Relationship Specialty Start Date End Date Gurjit Jones MD [address] [place] [address] PCP - General Internal Medicine 09/24/19
--- OUTSIDE RECORDS SUMMARY | 2024-07-09 04:56 | XMS_ITS | Encounter Summary ---
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
--- OUTSIDE RECORDS SUMMARY | 2024-07-09 04:56 | XMS_ITS | Referral Summary ---
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
[2024-07-09] MEDS: methocarbamoL 750 MG TABLET PO (05:03)
[2024-07-09] MEDS: ACETAMINOPHEN 500 MG TABLET 1000 MG PO (05:03)
[2024-07-09] MEDS: LIDOCAINE 5% PATCH 1 PATCH TRANSDERM (06:28)
[2024-07-09] MEDS: oxyCODONE HCL (*CRX) 5 MG TAB IR PO (06:29)
[2024-07-09 06:42] VITALS: BP 182/90; PULSE 64; RESP 16; O2SAT 100
== END 2024-07-09 06:45 | disposition home or self-care (01) ==
PROVIDERS: Emergency Provider Emergency Medicine
DX: S22.32XA Fracture of one rib, left side, initial encounter for closed fracture (principal); I10 Essential (primary) hypertension; E78.5 Hyperlipidemia, unspecified; N40.1 Benign prostatic hyperplasia with lower urinary tract symptoms; R39.14 Feeling of incomplete bladder emptying; K58.9 Irritable bowel syndrome, unspecified; K21.9 Gastro-esophageal reflux disease without esophagitis; W20.8XXA Other cause of strike by thrown, projected or falling object, initial encounter
CPT/HCPCS: 71250; 99284; A9270